=== PATIENT | female | born 1940 | race African-American/Black ===

== ENCOUNTER 2016-12-10 18:15 | Emergency (ER) | payer MEDICARE, MEDICAID ==
--- NOTE | 2016-12-10 18:49 | ER Document Report ---
ED Medical Screen (RME) - General Chief Complaint: Altered Mental Status Stated Complaint: ALTERED MENTAL STATUS Notes: Patient is brought in by her daughter because patient is supposedly not acting right. Daughter was at work today, but there is a nurse who stays with the patient all day. Daughter says that this evening, patient wasn't responding and not acting her usual self. They were in the car and she said she wanted a hamburger and she took about 2 bites of the hamburger and began slobbering and shaking. She won't respond to the daughter and her questions. Daughter says that she vomited twice yesterday. She wears a diaper chronically. Has not had a fever. Patient has a history of Parkinson's with tremor and also of dementia. TRAVEL OUTSIDE OF THE [place] IN LAST 30 DAYS: No - Related Data Allergies/Adverse Reactions: simvastatin [From Zocor] Adverse Reaction (Severe, Verified 12/10/16 18:20) RHABDOMYOLYSIS Past Medical History - Past Medical History Cardiac Medical History: Reports: Hx Hypercholesterolemia, Hx Hypertension Neurological Medical History: Reports: Hx Cerebrovascular Accident Renal/ Medical History: Denies: Hx Peritoneal Dialysis Psychiatric Medical History: Reports: Hx Dementia Past Surgical History: Reports: Hx Hysterectomy - Immunizations Hx Diphtheria, Pertussis, Tetanus Vaccination: Yes
[2016-12-10 19:20] LABS: ABSOLUTE BASOPHILS # (AUTO) 0.1 10^3/uL (0.0-0.2); ABSOLUTE LYMPHOCYTES (AUTO) 1.9 10^3/uL (0.5-4.7); ABSOLUTE MONOCYTES (AUTO) 0.5 10^3/uL (0.1-1.4); ABSOLUTE NEUT (AUTO) 2.8 10^3/uL (1.7-8.2); EOSINOPHILS % (AUTO) 0.7 % (0-6); HEMATOCRIT 36.4 % (36.0-47.0); HEMOGLOBIN 12.4 g/dL (12.0-15.5); HGB HCT DIFFERENCE 0.8; LYMPHOCYTES % (AUTO) 36.4 % (13-45); MEAN CORPUSCULAR HEMOGLOBIN 31.8 pg (27.0-33.4); MEAN CORPUSCULAR HGB CONC 33.9 g/dL (32.0-36.0); MEAN CORPUSCULAR VOLUME 94 fl (80-97); MONOCYTES % (AUTO) 8.7 % (3-13); RED BLOOD COUNT 3.89 10^6/uL (3.72-5.28); SEGMENTED NEUTROPHILS % (AUTO) 53.2 % (42-78); WHITE BLOOD COUNT 5.3 10^3/uL (4.0-10.5)
[2016-12-10 19:43] LABS: ALANINE AMINOTRANSFERASE 25 U/L (9-52); ALKALINE PHOSPHATASE 54 U/L (38-126); ANION GAP 14 (5-19); ASPARTATE AMINO TRANSFERASE 29 U/L (14-36); BILIRUBIN,DIRECT 0.2 mg/dL (0.0-0.4); BILIRUBIN,TOTAL 0.6 mg/dL (0.2-1.3); BLOOD UREA NITROGEN 18 mg/dL (7-20); CARBON DIOXIDE 26 mmol/L (22-30); CHLORIDE 103 mmol/L (98-107); CREATINE KINASE 151 U/L (30-135); CREATININE RESULT 1.03 mg/dL (0.52-1.25); GLUCOSE 105 mg/dL (75-110); POTASSIUM 3.8 mmol/L (3.6-5.0); SODIUM 143.1 mmol/L (137-145); TOTAL PROTEIN 7.2 g/dL (6.3-8.2)
--- NOTE | 2016-12-10 21:51 | ER Document Report ---
ED General - General Chief Complaint: Altered Mental Status Stated Complaint: ALTERED MENTAL STATUS Mode of Arrival: Wheelchair Information source: Relative Cannot obtain history due to: Dementia Notes: This is a 76-year-old female with a history of dementia and Parkinson's disease who is brought to the ER by her [id number] for concerns of altered mental status today. Daughter in law, who is herself a poor historian, states that patient had a 3 week history of constipation but finally this week was able to have a bowel movement. Today she states that patient may have had an episode of decreased responsiveness when she would not answer the question about what she would like to eat. She finally did request a hamburger to eat but only took about 2 bites and then spit it out. She was also noted to possibly be drooling at that time. Patient's family states that she often has episodes where she refuses to have a bowel movement and tries to also hold her urine. She is currently back to her baseline mental status. She does have advanced dementia but is alert to person and place. TRAVEL OUTSIDE OF THE [place] IN LAST 30 DAYS: No - Related Data Allergies/Adverse Reactions: simvastatin [From Zocor] Adverse Reaction (Severe, Verified 12/10/16 18:20) RHABDOMYOLYSIS Past Medical History - Social History Smoking Status: Unknown if Ever Smoked Chew tobacco use (# tins/day): No Frequency of alcohol use: None Drug Abuse: None Family History: Reviewed & Not Pertinent Patient has suicidal ideation: No Patient has homicidal ideation: No - Past Medical History Cardiac Medical History: Reports: Hx Hypercholesterolemia, Hx Hypertension Neurological Medical History: Reports: Hx Cerebrovascular Accident Renal/ Medical History: Denies: Hx Peritoneal Dialysis Psychiatric Medical History: Reports: Hx Dementia Past Surgical History: Reports: Hx Hysterectomy - Immunizations Hx Diphtheria, Pertussis, Tetanus Vaccination: Yes Hx Pneumococcal Vaccination: 05/21/15 Physical Exam - Vital signs Vitals: Resp 18 12/10/16 20:27 Course - Re-evaluation Re-evalutation: 12/10/16 23:51 Multiple re-evaluations during pt's ER stay. She remains alert, smiling, and in no distress, denying any pain or complaints. Both son and daughter in law state that this is her normal mental status. Son states that patient will from time to time have episodes she spits up food and is not as responsive. We discussed her reassuring lab evaluation as well as a reassuring head CT and chest x-ray. It does appear that she has a urinary tract infection and we will treat with antibiotics. This may be the reason for her change in mental status today. At this time I see no evidence of acute stroke or need for inpatient hospitalization. Family is comfortable with plan for outpatient follow-up. Strict return precautions discussed. - Vital Signs Vital signs: Temp Pulse Resp BP Pulse Ox 60 14 144/80 H 97 12/10/16 23:00 12/10/16 23:08 12/10/16 23:00 12/10/16 23:08 - Laboratory Result Diagrams: 12/10/16 18:55 12/10/16 18:55 Laboratory results interpreted by me: 12/10/16 12/10/16 18:55 23:16 Est GFR (Non-Af Amer) 52 L Creatine Kinase 151 H Ur Leukocyte Esterase TRACE H - Diagnostic Test Radiology reviewed: Reports reviewed - CXR: no acute process CT head: no acute process Discharge - Discharge Clinical Impression: Urinary tract infection Qualifiers: Urinary tract infection type: site unspecified Hematuria presence: without hematuria Qualified Code(s): N39.0 - Urinary tract infection, site not specified Dementia Qualifiers: Dementia type: unspecified type Dementia behavioral disturbance: without behavioral disturbance Qualified Code(s): F03.90 - Unspecified dementia without behavioral disturbance Condition: Stable Disposition: HOME, SELF-CARE Additional Instructions: URINARY TRACT INFECTION: Your evaluation indicates that you have a urinary tract infection. This is due to germs growing in the bladder. This is a common problem. This infection usually responds quickly to antibiotics. Your antibiotic should be taken exactly as prescribed. Drink plenty of fluids -- three to four quarts a day. Occasionally, a bladder anesthetic will be prescribed to help stop the feeling of urgency until the antibiotic has a chance to clear the infection. This may cause your urine to be dark orange. Certain urine infections require a culture. If the doctor obtained a culture, the results will be back in two days. You should call to see if a change in treatment is needed. A repeat urinalysis after you finish treatment is often recommended. The physician will let you know if further testing is required. Call the doctor if you develop fever, chills, flank pain, inability to urinate, or blood in the urine. ANTIBIOTIC THERAPY: You have been given an antibiotic prescription. It's important that you take all the medication, unless instructed otherwise by your physician. Failure to complete the entire course can result in relapse of your condition. Common side effects of antibiotics include nausea, intestinal cramping, or diarrhea. Women may develop vaginal yeast infections, and babies can get yeast (thrush) in the mouth following the use of antibiotics. Contact your physician if you develop significant side effects from this medication. Allergy to this antibiotic can result in hives, wheezing, faintness, or itching. If symptoms of allergy occur, stop the medication and call the doctor. NITROFURANTOIN (MACRODANTIN, MACROBID): You have received a prescription for nitrofurantoin (Macrodantin). This antibiotic is used for urinary tract infections. Women who are or nursing should notify the physician before taking this medicine. If you have ever had a problem caused by this medication in the past, be sure the physician is aware of it. Common side effects of this medicine include nausea, vomiting, or decreased appetite. Notify your physician if these side effects become severe. Immediately stop this medicine and call the physician if you develop cough , shortness of breath, chest pain, weakness, jaundice (yellow color of the skin and whites of the eyes), or a skin rash. Dementia The exam shows a decrease in mental ability called dementia. Signs of dementia include a gradual loss of memory and a decreased ability to reason and solve problems. Personality changes, hostility, lack of self-care, and loss of bladder or bowel control are later signs of dementia. In these later stages, patients may become confused, lost, fearful, or agitated, even in familiar places. Alzheimer's disease is the most common type of dementia. It has no known cause or specific treatment. Other causes include alcohol and drug abuse, medication effects (especially tranquilizers and sleeping pills), strokes, head injuries, and brain tumors. Sometimes severe depression in an elderly person is mistaken for dementia, and this can be treated if recognized. A complete medical evaluation and ongoing care with a doctor is important. Most people with dementia need help or supervision with daily living. Some may be able to live independently with occasional help; others require foster care or even alf placement. Alcohol, sedatives, and antihistamines may make the symptoms worse and should be avoided. Alzheimer's disease support groups are available in some communities and can be very valuable to the entire family. Prescription medication can ease the symptoms of Alzheimer's disease in some patients. Please arrange for medical follow-up. Return here if there is a sudden change in mental function, inability to move an arm or leg, inability to speak, fever, or any other significant change. FOLLOW-UP CARE: If you have been referred to a physician for follow-up care, call the physician s office for an appointment as you were instructed or within the next two days. If you experience worsening or a significant change in your symptoms, notify the physician immediately or return to the Emergency Department at any time for re-evaluation. As discussed follow-up with your primary care physician this week. Encourage fluid intake. Return to the ER for high fever, persistant vomiting, or any worsening symptoms or concerns. Prescriptions: Nitrofurantoin/Nitrofuran Mac [Macrobid 100 mg Capsule] 1 tab PO BID #20 capsule
[2016-12-10 23:26] LABS: APPEARANCE,URINE SLIGHTLY-CLOUDY; BILIRUBIN,URINE NEGATIVE (NEGATIVE); GLUCOSE, URINE NEGATIVE (NEGATIVE); KETONES,URINE NEGATIVE (NEGATIVE); LEUKOCYTE ESTERASE,URINE TRACE (NEGATIVE); NITRITE,URINE NEGATIVE (NEGATIVE); PROTEIN,URINE NEGATIVE (NEGATIVE); URINE SPECIFIC GRAVITY 1.015; UROBILINOGEN,URINE NEGATIVE mg/dL (<2.0)
[2016-12-10] MEDS ORDERED: CEFTRIAXONE 1 GM/D5W RTU 50 ML IV ONE (23:41)
[2016-12-10] MEDS ORDERED: CEFTRIAXONE INJ 500 MG VIAL IM ONE (23:47)
[2016-12-11 00:18] VITALS: BP 150/95
== END 2016-12-11 00:32 | disposition home or self-care (01) ==
LOC: ER 18:15
DX: N39.0 Urinary tract infection, site not specified (principal); G20 Parkinson's disease; F02.80 Dementia in other diseases classified elsewhere, unspecified severity, without behavioral disturbance, psychotic disturbance, mood disturbance, and anxiety; R41.82 Altered mental status, unspecified
CPT/HCPCS: 99285; 96372; 51701; 36415; 87086; 82553; 82962; 82550; 85025; 87088; 80053; 81001; 87186; 71020; 70450; J0696

== ENCOUNTER 2017-01-19 13:11 | Inpatient (IN) | payer MEDICARE, MEDICAID ==
[2017-01-19] MEDS ORDERED: NORMAL SALINE 1000 ML 1,000 ML IV ONE (14:23)
--- NOTE | 2017-01-19 14:28 | ER Document Report ---
ED Medical Screen (RME) - General Chief Complaint: Decreased Appetite Stated Complaint: CONFUSION,NOT EATING Time Seen by Provider: 01/19/17 14:21 Notes: Patient is a 76-year-old patient who has a history of dementia and does not communicate who is brought in by her son and care provider today because she has not been eating for the past week. In addition, she has been drinking less than she usually does. She has had symptoms such as these current ones when she has had a UTI in the past. Patient has been urinating very little this past week. Has not had any fevers. Not diabetic. TRAVEL OUTSIDE OF THE [place] IN LAST 30 DAYS: No - Related Data Allergies/Adverse Reactions: simvastatin [From Zocor] Adverse Reaction (Severe, Verified 01/19/17 13:26) RHABDOMYOLYSIS Past Medical History - Past Medical History Cardiac Medical History: Reports: Hx Hypercholesterolemia, Hx Hypertension Neurological Medical History: Reports: Hx Cerebrovascular Accident Renal/ Medical History: Denies: Hx Peritoneal Dialysis Psychiatric Medical History: Reports: Hx Dementia Past Surgical History: Reports: Hx Hysterectomy - Immunizations Hx Diphtheria, Pertussis, Tetanus Vaccination: Yes Physical Exam - Vital signs Vitals: Temp BP 97.8 F 108/66 01/19/17 13:26 01/19/17 13:26 Course - Vital Signs Vital signs: Temp Pulse Resp BP Pulse Ox 97.8 F 108/66 01/19/17 13:26 01/19/17 13:26
[2017-01-19 16:03] LABS: ABSOLUTE LYMPHOCYTES (AUTO) 2.8 10^3/uL (0.5-4.7); ABSOLUTE MONOCYTES (AUTO) 0.5 10^3/uL (0.1-1.4); ABSOLUTE NEUT (AUTO) 11.2 10^3/uL (1.7-8.2); BASOPHILS % (AUTO) 0.1 % (0-2); EOSINOPHILS % (AUTO) 0.1 % (0-6); HEMATOCRIT 39.4 % (36.0-47.0); HEMOGLOBIN 12.2 g/dL (12.0-15.5); HGB HCT DIFFERENCE -2.8; LYMPHOCYTES % (AUTO) 19.6 % (13-45); MEAN CORPUSCULAR HEMOGLOBIN 31.3 pg (27.0-33.4); MEAN CORPUSCULAR VOLUME 101 fl (80-97); MONOCYTES % (AUTO) 3.2 % (3-13); RED BLOOD COUNT 3.91 10^6/uL (3.72-5.28); RED CELL DISTRIBUTION WIDTH 14.8 % (11.5-14.0); WHITE BLOOD COUNT 14.5 10^3/uL (4.0-10.5)
[2017-01-19 16:25] LABS: ALANINE AMINOTRANSFERASE 35 U/L (9-52); ALBUMIN 4.1 g/dL (3.5-5.0); ALKALINE PHOSPHATASE 80 U/L (38-126); ANION GAP 19 (5-19); ASPARTATE AMINO TRANSFERASE 48 U/L (14-36); BILIRUBIN,DIRECT 0.4 mg/dL (0.0-0.4); BILIRUBIN,TOTAL 0.7 mg/dL (0.2-1.3); BLOOD UREA NITROGEN 76 mg/dL (7-20); CARBON DIOXIDE 23 mmol/L (22-30); CHLORIDE 136 mmol/L (98-107); CREATININE RESULT 2.63 mg/dL (0.52-1.25); GLUCOSE 80 mg/dL (75-110); POTASSIUM 4.6 mmol/L (3.6-5.0); TOTAL PROTEIN 8.4 g/dL (6.3-8.2)
[2017-01-19 16:36] LABS: SODIUM 178.2 mmol/L (137-145)
[2017-01-19] MEDS ORDERED: DEXTROSE 5%-WATER 500 ML IV PRN (16:48)
--- NOTE | 2017-01-19 17:21 | ER Document Report ---
ED General - General Chief Complaint: Decreased Appetite Stated Complaint: CONFUSION,NOT EATING Time Seen by Provider: 01/19/17 14:21 Mode of Arrival: Wheelchair Information source: Relative Notes: Pt is a 76 year old female who presents to the ER today with her son who brings her because she's not been eating or drinking over the past week. She has a history of multiple strokes and dementia, and usually talks a little per son. Over the past week, she's been talking less and been more "out of it." He also states she hasn't been urinating much during the day. He denies that she's had any diarrhea, complained of any pain, had any fever/chills, any new medications , hit her head, nausea or vomiting. TRAVEL OUTSIDE OF THE [place] IN LAST 30 DAYS: No - Related Data Allergies/Adverse Reactions: simvastatin [From Zocor] Adverse Reaction (Severe, Verified 01/19/17 13:26) RHABDOMYOLYSIS Home Medications: Current Home Medications Cyanocobalamin (Vitamin B-12) [Vitamin B-12 1000 mcg Tablet] 1,000 mcg PO DAILY 01/19/17 [History] Olmesartan/Amlodipin/Hcthiazid [Tribenzor 40-5-25 mg Tablet] 1 tab PO DAILY 09/06 [History] Pramipexole Di-HCl [Mirapex] 1.5 mg PO TID 01/19/17 [History] Past Medical History - General Information source: Patient - Social History Smoking Status: Never Smoker Frequency of alcohol use: None Drug Abuse: None Family History: Reviewed & Not Pertinent Patient has suicidal ideation: No Patient has homicidal ideation: No - Past Medical History Cardiac Medical History: Reports: Hx Hypercholesterolemia, Hx Hypertension Neurological Medical History: Reports: Hx Cerebrovascular Accident Renal/ Medical History: Denies: Hx Peritoneal Dialysis Psychiatric Medical History: Reports: Hx Dementia Past Surgical History: Reports: Hx Hysterectomy - Immunizations Hx Diphtheria, Pertussis, Tetanus Vaccination: Yes Hx Pneumococcal Vaccination: 05/21/15 Review of Systems - Review of Systems Constitutional: No symptoms reported EENT: No symptoms reported Cardiovascular: No symptoms reported Respiratory: No symptoms reported Gastrointestinal: See HPI Genitourinary: See HPI Female Genitourinary: No symptoms reported Musculoskeletal: No symptoms reported Skin: No symptoms reported Hematologic/Lymphatic: No symptoms reported Neurological/Psychological: See HPI Physical Exam - Vital signs Vitals: Temp BP 97.8 F 108/66 01/19/17 13:26 01/19/17 13:26 - Notes Notes: PHYSICAL EXAMINATION: GENERAL: elderly, demented, in no acute distress. HEAD: Atraumatic, normocephalic. NECK: Normal range of motion, supple without lymphadenopathy LUNGS: CTAB and equal. No wheezes rales or rhonchi. HEART: Regular rate and rhythm without murmurs ABDOMEN: Soft, no tenderness. No guarding, no rebound BACK: no vertebral tenderness, normal ROM GI/: no CVA tenderness EXTREMITIES: Normal range of motion, no pitting edema. No cyanosis. NEUROLOGICAL: nods head at certain questions appropriately, follows commands appropriately PSYCH: demented SKIN: Warm, Dry, normal turgor, no rashes or lesions noted Course - Re-evaluation Re-evalutation: 01/19/17 17:28 Patient has an elevated white blood cell count 14.5, elevated creatinine at 2.63 , BUN of 76, sodium of [address] at 136[address] Dr[address] Fields agrees to admit at this time for hypernatremia, altered mental status. 01/19/17 17:28 01/19/17 17:28 01/19/17 17:29 - Vital Signs Vital signs: Temp Pulse Resp BP Pulse Ox 97.8 F 87 16 108/66 99 01/19/17 13:27 01/19/17 13:27 01/19/17 13:27 01/19/17 13:27 01/19/17 13:27 - Laboratory Result Diagrams: 01/19/17 15:25 01/19/17 15:25 Laboratory results interpreted by me: 01/19/17 01/19/17 01/19/17 15:25 15:25 17:28 WBC 14.5 H MCV 101 H MCHC 31.0 L RDW 14.8 H Plt Count 105 L Absolute Neutrophils 11.2 H Sodium 178.2 H* Chloride 136 H BUN 76 H Creatinine 2.63 H Est GFR ( Amer) 21 L Est GFR (Non-Af Amer) 18 L AST 48 H Total Protein 8.4 H Urine Protein 30 H Ur Leukocyte Esterase MODERATE H Urine Ascorbic Acid 40 H Critical Care Note - Critical Care Note Total time excluding time spent on procedures (mins): 35 - 35 minutes spent in critical care time with patient, consulted with attending, speaking with family , placing orders and evaluating tests and labs. Discharge - Discharge Clinical Impression: Altered mental status, Hypernatremia, CITLALLI (acute kidney injury) Admitting Provider: Hospitalist Unit Admitted: Telemetry
[2017-01-19] MEDS ORDERED: 1/2 NORMAL SALINE 1,000 ML IV PRN (17:22)
[2017-01-19] MEDS ORDERED: MAGNESIUM HYDROXIDE SUSP 30 ML UDCUP PO PRN (17:27)
[2017-01-19] MEDS ORDERED: ONDANSETRON HCL INJ/PF 4 MG/2 ML SDV IV PRN (17:27)
[2017-01-19] MEDS ORDERED: ACETAMINOPHEN 325 MG TABLET PO PRN (17:27)
--- NOTE | 2017-01-19 17:39 | PDOC H&P ---
History of Present Illness Admission Date/PCP: 01/19/2017 isabel maldonado History of Present Illness: DIXIE MANJARREZ is a 76 year old female Past Medical History Cardiac Medical History: Reports: Hyperlipidema, Hypertension Psychiatric Medical History: Reports: Dementia Past Surgical History Past Surgical History: Reports: Hysterectomy Social History Information Source: Relative Smoking Status: Never Smoker Frequency of Alcohol Use: None Hx Recreational Drug Use: No Drugs: None Hx Prescription Drug Abuse: No - Advance Directive Resuscitation Status: Do Not Resuscitate Family History Family History: Reviewed & Not Pertinent Parental Family History Reviewed: Yes Children Family History Reviewed: Yes Sibling(s) Family History Reviewed.: Yes Medication/Allergy Home Medications: Ergocalciferol (Vitamin D2) [Drisdol 50,000 unit (1.25MG) Capsule] 50,000 unit PO SUNSHINE 08/10/15 Aspirin [[place] Aspirin] 81 mg PO DAILY 10/29/15 Cetirizine HCl [Zyrtec 10 mg Tablet] 10 mg PO DAILY 10/29/15 Cyanocobalamin (Vitamin B-12) [Vitamin B-12] 1,000 mcg PO DAILY 10/29/15 Gabapentin 100 mg PO TID 10/29/15 Olmesartan/Amlodipin/Hcthiazid [Tribenzor 40-5-25 mg Tablet] 1 tab PO DAILY 06/05 Pramipexole Di-HCl [Mirapex] 1.5 mg PO TID 10/29/15 Nitrofurantoin/Nitrofuran Mac [Macrobid 100 mg Capsule] 1 tab PO BID #20 capsule 12/10/16 Allergies/Adverse Reactions: simvastatin [From Zocor] Adverse Reaction (Severe, Verified 01/19/17 13:26) RHABDOMYOLYSIS Review of Systems ROS unobtainable: Due to mental status - demented Physical Exam Vital Signs: Temp Pulse Resp BP Pulse Ox 97.8 F 87 16 108/66 99 01/19/17 13:27 01/19/17 13:27 01/19/17 13:27 01/19/17 13:27 01/19/17 13:27 Intake & Output 01/18/17 01/19/17 01/20/17 06:59 06:59 06:59 Weight 56.2 kg General appearance: PRESENT: no acute distress, thin Head exam: PRESENT: atraumatic, normocephalic Eye exam: ABSENT: conjunctival injection, scleral icterus Mouth exam: PRESENT: moist Neck exam: ABSENT: lymphadenopathy, tracheal deviation Respiratory exam: PRESENT: chest wall tenderness. ABSENT: accessory muscle use Cardiovascular exam: PRESENT: RRR, systolic murmur - soft Pulses: PRESENT: normal radial pulses, normal dorsalis pedis pul GI/Abdominal exam: PRESENT: normal bowel sounds, soft. ABSENT: tenderness Extremities exam: PRESENT: calf tenderness. ABSENT: pedal edema Musculoskeletal exam: PRESENT: full ROM. ABSENT: tenderness Neurological exam: PRESENT: alert, awake, oriented to person, oriented to place. ABSENT: oriented to time, oriented to situation Psychiatric exam: PRESENT: appropriate affect, normal mood Skin exam: PRESENT: dry, warm Results Laboratory Results: 01/19/17 15:25 01/19/17 15:25 01/19/17 01/19/17 15:25 15:25 WBC 14.5 H RBC 3.91 Hgb 12.2 Hct 39.4 MCV 101 H MCH 31.3 MCHC 31.0 L RDW 14.8 H Plt Count 105 L Seg Neutrophils % 77.0 Lymphocytes % 19.6 Monocytes % 3.2 Eosinophils % 0.1 Basophils % 0.1 Absolute Neutrophils 11.2 H Absolute Lymphocytes 2.8 Absolute Monocytes 0.5 Absolute Eosinophils 0.0 Absolute Basophils 0.0 Sodium 178.2 H* Potassium 4.6 Chloride 136 H Carbon Dioxide 23 Anion Gap 19 BUN 76 H Creatinine 2.63 H Est GFR ( Amer) 21 L Est GFR (Non-Af Amer) 18 L Glucose 80 Calcium 10.0 Total Bilirubin 0.7 AST 48 H ALT 35 Alkaline Phosphatase 80 Total Protein 8.4 H Albumin 4.1 Assessment & Plan - Diagnosis (1) Hypernatremia Is this a current diagnosis for this admission?: YesPlan: severe and due to decreased oral intake, probably related to progressive dementia. she really doesn't appear but mildly hypovolemic clinically. BMP q4hrs for next 24 hrs. chg from D5W to 1/2 NS and adjust based on lab results (2) CITLALLI (acute kidney injury) Is this a current diagnosis for this admission?: YesPlan: likely prerenal due to decreased oral intake (3) Dementia Qualifiers: Dementia type: unspecified type Dementia behavioral disturbance: without behavioral disturbance Qualified Code(s): F03.90 - Unspecified dementia without behavioral disturbance Is this a current diagnosis for this admission?: Yes (4) Dysphagia Qualifiers: Dysphagia type: unspecified Qualified Code(s): R13.10 - Dysphagia, unspecified Is this a current diagnosis for this admission?: YesPlan: likely progressive dementia, have ST evaluate (5) Parkinson disease Is this a current diagnosis for this admission?: Yes - Time Time Spent: 50 to 70 Minutes Medications reviewed and adjusted accordingly: Yes Anticipated discharge: Home - lives with her son/POA who takes very good care of her - Inpatient Certification Based on my medical assessment, after consideration of the patient's comorbidities, presenting symptoms, or acuity I expect that the services needed warrant INPATIENT care.: Yes I certify that my determination is in accordance with my understanding of Medicare's requirements for reasonable and necessary INPATIENT services [42 CFR 412.3e].: Yes Medical Necessity: Significant Comorbidiites Make Outpatient Treatment Too Risky , Need Close Monitoring Due to Risk of Patient Decompensation, Need For IV Fluids, Risk of Complication if Not Cared For in Hospital
[2017-01-19 17:59] LABS: APPEARANCE,URINE SLIGHTLY-CLOUDY; BILIRUBIN,URINE NEGATIVE (NEGATIVE); GLUCOSE, URINE NEGATIVE (NEGATIVE); KETONES,URINE NEGATIVE (NEGATIVE); LEUKOCYTE ESTERASE,URINE MODERATE (NEGATIVE); NITRITE,URINE NEGATIVE (NEGATIVE); PROTEIN,URINE 30 mg/dL (NEGATIVE); URINE SPECIFIC GRAVITY 1.017; UROBILINOGEN,URINE NEGATIVE mg/dL (<2.0)
[2017-01-19] MEDS ORDERED: DEXTROSE 50%-WATER 25 GM/50 ML DISP.SYRIN IV ONE (18:54)
[2017-01-19] MEDS ORDERED: DEXTROSE 40% GEL 15 GM TUBE PO PRN ×2 (18:55)
[2017-01-19] MEDS ORDERED: GLUCAGON,HUMAN RECOMB 1 MG INJ IM PRN (18:55)
[2017-01-19] MEDS ORDERED: DEXTROSE 5%-1/2 NORMAL SALINE 1,000 ML IV PRN (18:55)
[2017-01-19] MEDS ORDERED: DEXTROSE 50%-WATER 25 GM/50 ML DISP.SYRIN IV PRN ×2 (18:55)
[2017-01-19 20:52] LABS: BLOOD UREA NITROGEN 72 mg/dL (7-20); CALCIUM 9.1 mg/dL (8.4-10.2); CARBON DIOXIDE 22 mmol/L (22-30); CREATININE RESULT 2.28 mg/dL (0.52-1.25); GLUCOSE 110 mg/dL (75-110); POTASSIUM 4.6 mmol/L (3.6-5.0)
[2017-01-19 21:25] LABS: CHLORIDE 134 mmol/L (98-107)
[2017-01-19 21:32] LABS: ANION GAP 20 (5-19); SODIUM 176.4 mmol/L (137-145)
[2017-01-19] MEDS: HEPARIN SOD (PORCINE) 5,000 UNIT/ML 1 ML SYRINGE SUBCUT SCH (22:12)
[2017-01-20 00:59] LABS: ANION GAP 12 (5-19); BLOOD UREA NITROGEN 66 mg/dL (7-20); CALCIUM 8.7 mg/dL (8.4-10.2); CARBON DIOXIDE 24 mmol/L (22-30); CHLORIDE 133 mmol/L (98-107); GLUCOSE 115 mg/dL (75-110); POTASSIUM 4.5 mmol/L (3.6-5.0); SODIUM 168.9 mmol/L (137-145)
[2017-01-20] MEDS ORDERED: DEXTROSE 5%-NORMAL SALINE 1,000 ML IV PRN ×2 (02:33→05:43)
[2017-01-20 04:53] LABS: ANION GAP 10 (5-19); BLOOD UREA NITROGEN 62 mg/dL (7-20); CALCIUM 8.6 mg/dL (8.4-10.2); CARBON DIOXIDE 25 mmol/L (22-30); CHLORIDE 132 mmol/L (98-107); CREATININE RESULT 2.03 mg/dL (0.52-1.25); GLUCOSE 98 mg/dL (75-110); POTASSIUM 3.9 mmol/L (3.6-5.0); SODIUM 167.4 mmol/L (137-145)
[2017-01-20] MEDS: HEPARIN SOD (PORCINE) 5,000 UNIT/ML 1 ML SYRINGE SUBCUT SCH ×3 (05:07→22:18)
[2017-01-20] MEDS ORDERED: (PENDING PHARMACY ID) (Pramipexole Di-Hcl [Mirapex] 1.5 MG) PO SCH (10:00)
--- NOTE | 2017-01-20 12:36 | PDOC PROGRESS REPORT ---
Subjective Progress Note for:: 01/20/17 Subjective:: reason for visit: f/u hypernatremia, dysphagia, dementia hospital course: 76yo female cared for by her son at home with advancing dementia presents to the ED with decreased appetite, increased lethargy and altered mental state. he reports she hasn't really eaten or drank anything for about a week, sometimes she will chew the food for a long time but never swallow it, other times she seems to do fine. he's noticed a drop off in her urine output to only once per day of concentrated, "strong smelling" urine and assumed she had another UTI b/c this is how she behaved in the past with UTIs. she is too demented to provide reliable ROS or PMH. eval in ED acute renal failure and hypernatremia, we were asked to admit for IVFs and further eval. He reports she is DNR and would not want aggressive or invasive interventions. Physical Exam Vital Signs: Temp Pulse Resp BP Pulse Ox 98.0 F 73 20 98/51 L 97 01/20/17 12:00 01/20/17 12:00 01/20/17 12:00 01/20/17 12:00 01/20/17 12:00 Intake & Output 01/19/17 01/20/17 01/21/17 06:59 06:59 06:59 Intake Total 102 Output Total 320 Balance -320 102 Weight 53.2 kg General appearance: PRESENT: no acute distress, thin, well-developed Head exam: PRESENT: atraumatic, normocephalic Teeth exam: PRESENT: poor dentation Neck exam: PRESENT: full ROM. ABSENT: JVD, thyromegaly, tracheal deviation Respiratory exam: PRESENT: clear to auscultation blake. ABSENT: accessory muscle use, unlabored Cardiovascular exam: PRESENT: RRR. ABSENT: systolic murmur Pulses: PRESENT: normal radial pulses, normal dorsalis pedis pul GI/Abdominal exam: PRESENT: normal bowel sounds, soft. ABSENT: tenderness Extremities exam: ABSENT: calf tenderness, pedal edema Neurological exam: PRESENT: alert, awake, oriented to person, oriented to place. ABSENT: oriented to time, oriented to situation Skin exam: PRESENT: dry, warm Results Laboratory Results: 01/20/17 04:01 01/19/17 01/19/17 01/20/17 17:28 20:21 00:26 Sodium 176.4 H* 168.9 H Potassium 4.6 4.5 Chloride 134 H 133 H Carbon Dioxide 22 24 Anion Gap 20 H 12 BUN 72 H 66 H Creatinine 2.28 H 2.00 H Est GFR ( Amer) 25 L 29 L Est GFR (Non-Af Amer) 21 L 24 L Glucose 110 115 H Calcium 9.1 8.7 Urine Color YELLOW Urine Appearance SLIGHTLY-CLOUDY Urine pH 5.0 Ur Specific [place] 1.017 Urine Protein 30 H Urine Glucose (UA) NEGATIVE Urine Ketones NEGATIVE Urine Blood NEGATIVE Urine Nitrite NEGATIVE Ur Leukocyte Esterase MODERATE H Urine WBC (Auto) 6 Urine RBC (Auto) 1 01/20/17 04:01 Sodium 167.4 H Potassium 3.9 Chloride 132 H Carbon Dioxide 25 Anion Gap 10 BUN 62 H Creatinine 2.03 H Est GFR ( Amer) 29 L Est GFR (Non-Af Amer) 24 L Glucose 98 Calcium 8.6 Urine Color Urine Appearance Urine pH Ur Specific [place] Urine Protein Urine Glucose (UA) Urine Ketones Urine Blood Urine Nitrite Ur Leukocyte Esterase Urine WBC (Auto) Urine RBC (Auto) Assessment & Plan - Diagnosis (1) Hypernatremia Is this a current diagnosis for this admission?: YesPlan: improved but not back to baseline, continue IVFs and f/u labs tonight and in the morning, she is difficult vascular/venous access so try to avoid too many venopunctures (2) CITLALLI (acute kidney injury) Is this a current diagnosis for this admission?: YesPlan: improved but not back to baseline. likely prerenal due to decreased oral intake ; continue IVFs (3) Dementia Qualifiers: Dementia type: unspecified type Dementia behavioral disturbance: without behavioral disturbance Qualified Code(s): F03.90 - Unspecified dementia without behavioral disturbance Is this a current diagnosis for this admission?: YesPlan: seems to be back to baseline (4) Dysphagia Qualifiers: Dysphagia type: unspecified Qualified Code(s): R13.10 - Dysphagia, unspecified Is this a current diagnosis for this admission?: YesPlan: improved, comlicated by hypernatremia; likely due to progressive dementia. ST evaluation shows no swallow failure, just delayed processing and is recommending amending her textures but no neurologic or functional abnl noted (5) Parkinson disease Is this a current diagnosis for this admission?: Yes - Time Time Spent with patient: 25-34 minutes
[2017-01-20] MEDS: PRAMIPEXOLE DI-HCL 0.5 MG TABLET PO SCH ×2 (15:02→22:22)
[2017-01-20 23:36] LABS: ANION GAP 12 (5-19); CALCIUM 8.5 mg/dL (8.4-10.2); CARBON DIOXIDE 21 mmol/L (22-30); CHLORIDE 131 mmol/L (98-107); CREATININE RESULT 1.48 mg/dL (0.52-1.25); GLUCOSE 95 mg/dL (75-110); POTASSIUM 4.2 mmol/L (3.6-5.0); SODIUM 164.4 mmol/L (137-145)
[2017-01-20 23:52] LABS: BLOOD UREA NITROGEN 36 mg/dL (7-20)
[2017-01-21] MEDS: PRAMIPEXOLE DI-HCL 0.5 MG TABLET PO SCH ×3 (05:03→22:22)
[2017-01-21] MEDS: HEPARIN SOD (PORCINE) 5,000 UNIT/ML 1 ML SYRINGE SUBCUT SCH ×3 (05:09→22:15)
[2017-01-21 05:36] LABS: ANION GAP 9 (5-19); BLOOD UREA NITROGEN 29 mg/dL (7-20); CARBON DIOXIDE 21 mmol/L (22-30); CHLORIDE 132 mmol/L (98-107); CREATININE RESULT 1.34 mg/dL (0.52-1.25); GLUCOSE 109 mg/dL (75-110); POTASSIUM 3.9 mmol/L (3.6-5.0); SODIUM 162.3 mmol/L (137-145)
--- NOTE | 2017-01-21 12:18 | PDOC PROGRESS REPORT ---
Subjective Progress Note for:: 01/21/17 Subjective:: reason for visit: f/u hypernatremia, dysphagia, dementia hospital course: 76yo female cared for by her son at home with advancing dementia presents to the ED with decreased appetite, increased lethargy and altered mental state. he reports she hasn't really eaten or drank anything for about a week, sometimes she will chew the food for a long time but never swallow it, other times she seems to do fine. he's noticed a drop off in her urine output to only once per day of concentrated, "strong smelling" urine and assumed she had another UTI b/c this is how she behaved in the past with UTIs. she is too demented to provide reliable ROS or PMH. eval in ED acute renal failure and hypernatremia, we were asked to admit for IVFs and further eval. He reports she is DNR and would not want aggressive or invasive interventions. ST evaluated and cleared for diet with consistency restriction in place, no s/s of aspiration noted. ROS: unobtainable due to dementia Physical Exam Vital Signs: Temp Pulse Resp BP Pulse Ox 97.3 F 66 16 128/67 H 98 01/21/17 11:16 01/21/17 11:16 01/21/17 11:16 01/21/17 11:16 01/21/17 11:16 Intake & Output 01/20/17 01/21/17 01/22/17 06:59 06:59 06:59 Intake Total 1525 481 Output Total 320 1400 100 Balance -320 125 381 Weight 53.2 kg 53.7 kg General appearance: PRESENT: no acute distress, thin Head exam: PRESENT: atraumatic, normocephalic Eye exam: ABSENT: conjunctival injection, scleral icterus Mouth exam: PRESENT: moist, neck supple Teeth exam: PRESENT: poor dentation Neck exam: PRESENT: full ROM. ABSENT: tracheal deviation Respiratory exam: PRESENT: clear to auscultation blake. ABSENT: accessory muscle use, unlabored Cardiovascular exam: PRESENT: RRR. ABSENT: systolic murmur Pulses: PRESENT: normal radial pulses, normal dorsalis pedis pul GI/Abdominal exam: PRESENT: normal bowel sounds, soft. ABSENT: tenderness Extremities exam: ABSENT: calf tenderness, pedal edema Musculoskeletal exam: PRESENT: full ROM Neurological exam: PRESENT: alert, awake, oriented to person, oriented to place. ABSENT: oriented to time, oriented to situation Psychiatric exam: PRESENT: appropriate affect, normal mood Skin exam: PRESENT: warm. ABSENT: dry Results Laboratory Results: 01/21/17 04:59 01/20/17 01/21/17 22:55 04:59 Sodium 164.4 H 162.3 H Potassium 4.2 3.9 Chloride 131 H 132 H Carbon Dioxide 21 L 21 L Anion Gap 12 9 BUN 36 H D 29 H Creatinine 1.48 H 1.34 H Est GFR ( Amer) 41 L 46 L Est GFR (Non-Af Amer) 34 L 38 L Glucose 95 109 Calcium 8.5 8.0 L Assessment & Plan - Diagnosis (1) Hypernatremia Is this a current diagnosis for this admission?: YesPlan: improved but not back to baseline, adjust IVFs and f/u labs in the morning, she is difficult vascular/venous access so try to avoid too many venopunctures (2) CITLALLI (acute kidney injury) Is this a current diagnosis for this admission?: YesPlan: improved but not back to baseline. likely prerenal due to decreased oral intake ; continue IVFs (3) Dementia Qualifiers: Dementia type: unspecified type Dementia behavioral disturbance: without behavioral disturbance Qualified Code(s): F03.90 - Unspecified dementia without behavioral disturbance Is this a current diagnosis for this admission?: Yes (4) Dysphagia Qualifiers: Dysphagia type: unspecified Qualified Code(s): R13.10 - Dysphagia, unspecified Is this a current diagnosis for this admission?: YesPlan: improved, complicated by hypernatremia; likely due to progressive dementia. ST evaluation shows no swallow failure, just delayed processing and is recommending amending her textures but no neurologic or functional abnl noted (5) Parkinson disease Is this a current diagnosis for this admission?: Yes - Time Time Spent with patient: 25-34 minutes Medications reviewed and adjusted accordingly: Yes Anticipated discharge: Home Within: within 24 hours - Plan Summary Plan Summary: discussed with her son at bedside, d/zbigniew fuentes today, ask PT to eval and probable d/c home Monday
[2017-01-21] MEDS: DEXTROSE 5%-1/2 NORMAL SALINE 1,000 ML IV PRN (12:44)
[2017-01-22] MEDS: DEXTROSE 5%-1/2 NORMAL SALINE 1,000 ML IV PRN (01:35)
[2017-01-22] MEDS: HEPARIN SOD (PORCINE) 5,000 UNIT/ML 1 ML SYRINGE SUBCUT SCH (05:07)
[2017-01-22] MEDS: PRAMIPEXOLE DI-HCL 0.5 MG TABLET PO SCH (06:23)
[2017-01-22 06:32] LABS: ANION GAP 8 (5-19); BLOOD UREA NITROGEN 20 mg/dL (7-20); CALCIUM 8.5 mg/dL (8.4-10.2); CARBON DIOXIDE 19 mmol/L (22-30); CHLORIDE 120 mmol/L (98-107); CREATININE RESULT 1.08 mg/dL (0.52-1.25); GLUCOSE 96 mg/dL (75-110); POTASSIUM 4.1 mmol/L (3.6-5.0)
[2017-01-22 10:43] VITALS: BP 138/76
--- NOTE | 2017-01-22 17:22 | PDOC DISCHARGE SUMMARY ---
General - Admit/Disc Date/PCP Admission Date/Primary Care Provider: 01/19/17 17:22 Discharge Date: 01/22/17 - Discharge Diagnosis (1) Hypernatremia Is this a current diagnosis for this admission?: YesSummary: due to hypovolemia, resolved with IVFs (2) CITLALLI (acute kidney injury) Is this a current diagnosis for this admission?: YesSummary: due to hypovolemia, resolved with IVFs (3) Dementia Is this a current diagnosis for this admission?: Yes (4) Dysphagia Is this a current diagnosis for this admission?: Yes (5) Parkinson disease Is this a current diagnosis for this admission?: Yes - Additional Information Resuscitation Status: Full Code Discharge Diet: As Tolerated Discharge Activity: Slowly Increase Activity, Supervised Activity Home Medications: Cyanocobalamin (Vitamin B-12) [Vitamin B-12 1000 mcg Tablet] 1,000 mcg PO DAILY 01/19/17 Pramipexole Di-HCl [Mirapex] 1.5 mg PO TID 01/19/17 Amlodipine Besylate 10 mg PO DAILY #30 tab 01/22/17 History of Present Illness Patient complains of: altered mental state, decreased oral intake History of Present Illness: presents from home where she is cared for by her son and his with decreased oral intake and increasing lethargy thinking "she probably has another UTI". Hospital Course Hospital Course: hospital course: 76yo female cared for by her son at home with advancing dementia presents to the ED with decreased appetite, increased lethargy and altered mental state. he reports she hasn't really eaten or drank anything for about a week, sometimes she will chew the food for a long time but never swallow it, other times she seems to do fine. he's noticed a drop off in her urine output to only once per day of concentrated, "strong smelling" urine and assumed she had another UTI b/c this is how she behaved in the past with UTIs. she is too demented to provide reliable ROS or PMH. eval in ED acute renal failure and hypernatremia, we were asked to admit for IVFs and further eval. He reports she is DNR and would not want aggressive or invasive interventions. ST evaluated and cleared for diet with consistency restriction in place, no s/s of aspiration noted. her condition rapidly improved with IVFs, renal function returned to normal, fuentes removed and she urinated on her own, appetite improved but I noticed she seems to do better for her son than her daughter in law who diminishes her dementia and readily chastises her for not eating and "playing sick". Nevertheless, she is up walking with PT, tolerating a diet and labs have normalized therefore she is stable for d/c home. f Physical Exam Vital Signs: Temp Pulse Resp BP Pulse Ox 98.0 F 59 L 20 138/76 H 99 01/22/17 10:41 01/22/17 10:41 01/22/17 10:41 01/22/17 10:41 01/22/17 10:41 Intake & Output 01/21/17 01/22/17 01/23/17 06:59 06:59 06:59 Intake Total 1525 3014 291 Output Total 1400 100 Balance 125 2914 291 Weight 53.7 kg 55.1 kg General appearance: PRESENT: no acute distress, thin Head exam: PRESENT: atraumatic, normocephalic Eye exam: ABSENT: conjunctival injection, scleral icterus Mouth exam: PRESENT: moist, neck supple Teeth exam: PRESENT: poor dentation Neck exam: PRESENT: full ROM. ABSENT: tracheal deviation Respiratory exam: PRESENT: clear to auscultation blake. ABSENT: accessory muscle use, unlabored Cardiovascular exam: PRESENT: RRR. ABSENT: systolic murmur Pulses: PRESENT: normal radial pulses, normal dorsalis pedis pul GI/Abdominal exam: PRESENT: normal bowel sounds, soft. ABSENT: tenderness Extremities exam: ABSENT: calf tenderness, pedal edema Musculoskeletal exam: PRESENT: full ROM Neurological exam: PRESENT: alert, awake, oriented to person, oriented to place. ABSENT: oriented to time, oriented to situation Psychiatric exam: PRESENT: appropriate affect, normal mood Skin exam: PRESENT: warm. ABSENT: dry Results Laboratory Results: 01/22/17 05:47 01/22/17 05:47 Sodium 147.0 H Potassium 4.1 Chloride 120 H Carbon Dioxide 19 L Anion Gap 8 BUN 20 Creatinine 1.08 Est GFR ( Amer) > 60 Est GFR (Non-Af Amer) 49 L Glucose 96 Calcium 8.5 Qualifiers PATEINT BEING DISCHARGED WITH ANY OF THE FOLLOWING DIAGNOSIS?: No VTE patient discharged on overlapping Therapy?: No Reason(s) for not prescribing Overlap Therapy:: Not indicated Plan Discharge Plan: f/u with her PCP in one week for routine hospital f/u and repeat labs; return to the ED for worsening of her condition. Time Spent: Greater than 30 Minutes
== END 2017-01-22 11:00 | disposition home or self-care (01) | DRG 683 ==
LOC: ER 13:11 → EH 17:22 → UNDOADMIN 17:44 → EH 17:44 → 4S 19:51
PROVIDERS: ADMIT Internal Medicine; ATTEND Internal Medicine
DX: N17.9 Acute kidney failure, unspecified (principal); E87.0 Hyperosmolality and hypernatremia; Z66 Do not resuscitate; E78.5 Hyperlipidemia, unspecified; I10 Essential (primary) hypertension; R63.0 Anorexia; R13.10 Dysphagia, unspecified; G20 Parkinson's disease; F02.80 Dementia in other diseases classified elsewhere, unspecified severity, without behavioral disturbance, psychotic disturbance, mood disturbance, and anxiety; Z86.73 Personal history of transient ischemic attack (TIA), and cerebral infarction without residual deficits
CPT/HCPCS: 36415; 80048; 80053; 81001; 82962; 85025; 87040; 87077; 87086; 96361; 96365; 99291; G8978-GP; G8979-GP; G8996-GN; G8997-GN; G8998-GN; J1644; J3490; J7030; J7060

== ENCOUNTER 2018-05-06 17:12 | Emergency (ER) | payer MEDICARE, MEDICAID ==
--- NOTE | 2018-05-06 18:52 | ER Document Report ---
ED Medical Screen (RME) - General Chief Complaint: Altered Mental Status Stated Complaint: ALTERED MENTAL STATUS Time Seen by Provider: 05/06/18 18:49 Mode of Arrival: Wheelchair Information source: Relative Notes: According to patient's son, patient has been weak and having bilateral lower extremity swelling for the past few days. She is unable to walk straight according to the son. Patient is nonverbal and will not answer to questions when asked. History is limited from the patient's son who accompanied the patient to the emergency room. I have greeted and performed a rapid initial assessment of this patient. A comprehensive ED assessment and evaluation of the patient, analysis of test results and completion of the medical decision making process will be conducted by additional ED providers. TRAVEL OUTSIDE OF THE [place] IN LAST 30 DAYS: No - Related Data Allergies/Adverse Reactions: simvastatin [From Zocor] Adverse Reaction (Severe, Verified 01/19/17 13:26) RHABDOMYOLYSIS Past Medical History - Social History Chew tobacco use (# tins/day): No Frequency of alcohol use: None Drug Abuse: None - Past Medical History Cardiac Medical History: Reports: Hx Hypercholesterolemia, Hx Hypertension Neurological Medical History: Reports: Hx Cerebrovascular Accident Renal/ Medical History: Denies: Hx Peritoneal Dialysis Psychiatric Medical History: Reports: Hx Dementia Past Surgical History: Reports: Hx Hysterectomy - Immunizations Hx Diphtheria, Pertussis, Tetanus Vaccination: Yes Physical Exam - Vital signs Vitals: Temp Pulse Resp BP Pulse Ox 98.3 F 66 20 151/77 H 97 05/06/18 17:54 05/06/18 17:54 05/06/18 17:54 05/06/18 17:54 05/06/18 17:54 Course - Vital Signs Vital signs: Temp Pulse Resp BP Pulse Ox 98.3 F 66 20 151/77 H 97 05/06/18 17:54 05/06/18 17:54 05/06/18 17:54 05/06/18 17:54 05/06/18 17:54 Doctor's Discharge - Discharge Referrals: MOOK WHITE MD [Primary Care Provider] - Follow up as needed
[2018-05-06 21:02] LABS: ABSOLUTE LYMPHOCYTES (AUTO) 1.5 10^3/uL (0.5-4.7); ABSOLUTE NEUT (AUTO) 5.6 10^3/uL (1.7-8.2); HEMATOCRIT 38.1 % (36.0-47.0); HEMOGLOBIN 12.7 g/dL (12.0-15.5); LYMPHOCYTES % (AUTO) 20.5 % (13-45); MEAN CORPUSCULAR HEMOGLOBIN 32.1 pg (27.0-33.4); MEAN CORPUSCULAR HGB CONC 33.4 g/dL (32.0-36.0); MEAN CORPUSCULAR VOLUME 96 fl (80-97); MONOCYTES % (AUTO) 4.2 % (3-13); PLATELET COUNT 213 10^3/uL (150-450); RED BLOOD COUNT 3.96 10^6/uL (3.72-5.28); RED CELL DISTRIBUTION WIDTH 13.2 % (11.5-14.0); SEGMENTED NEUTROPHILS % (AUTO) 74.9 % (42-78); TOTAL CELLS COUNTED % (AUTO) 100 %; WHITE BLOOD COUNT 7.5 10^3/uL (4.0-10.5)
[2018-05-06 21:03] LABS: ABSOLUTE MONOCYTES (AUTO) 0.3 10^3/uL (0.1-1.4); BASOPHILS % (AUTO) 0.2 % (0-2); EOSINOPHILS % (AUTO) 0.2 % (0-6)
[2018-05-06 21:06] LABS: PROTHROMBIN TIME 12.6 SEC (11.4-15.4)
[2018-05-06 21:07] LABS: PARTIAL THROMBOPLASTIN TIME 28.3 SEC (23.5-35.8)
[2018-05-06 21:47] LABS: ALANINE AMINOTRANSFERASE 33 U/L (9-52); ALBUMIN 4.3 g/dL (3.5-5.0); ALKALINE PHOSPHATASE 72 U/L (38-126); ANION GAP 9 (5-19); ASPARTATE AMINO TRANSFERASE 45 U/L (14-36); BILIRUBIN,DIRECT 0.5 mg/dL (0.0-0.4); BILIRUBIN,TOTAL 0.7 mg/dL (0.2-1.3); BLOOD UREA NITROGEN 40 mg/dL (7-20); CALCIUM 10.8 mg/dL (8.4-10.2); CARBON DIOXIDE 28 mmol/L (22-30); CHLORIDE 103 mmol/L (98-107); CREATINE KINASE 230 U/L (30-135); CREATINE KINASE MB 2.89 ng/mL (<4.55); GLUCOSE 129 mg/dL (75-110); NT PRO BNP 40 pg/mL (<450); POTASSIUM 3.7 mmol/L (3.6-5.0); SODIUM 140.1 mmol/L (137-145); TOTAL PROTEIN 8.2 g/dL (6.3-8.2)
[2018-05-06 21:48] LABS: TROPONIN I < 0.012 ng/mL
[2018-05-07 00:53] LABS: APPEARANCE,URINE CLOUDY; BILIRUBIN,URINE NEGATIVE (NEGATIVE); COLOR,URINE YELLOW; GLUCOSE, URINE NEGATIVE (NEGATIVE); KETONES,URINE 25 mg/dL (NEGATIVE); LEUKOCYTE ESTERASE,URINE LARGE (NEGATIVE); NITRITE,URINE POSITIVE (NEGATIVE); PROTEIN,URINE 30 mg/dL (NEGATIVE); URINE SPECIFIC GRAVITY 1.018; UROBILINOGEN,URINE NEGATIVE mg/dL (<2.0)
[2018-05-07] MEDS ORDERED: CEFTRIAXONE INJ 1000 MG VIAL IV ONE (01:39)
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
[2018-05-07 04:02] VITALS: BP 175/82
--- NOTE | 2018-05-07 05:20 | EKG REPORT ---
SEVERITY:- ABNORMAL ECG - SINUS RHYTHM FIRST DEGREE AV BLOCK LEFT VENTRICULAR HYPERTROPHY : Confirmed by: Gavi Prince 07-May-2018 05:19:27
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
== END 2018-05-07 04:01 | disposition home or self-care (01) ==
LOC: ER 17:12
DX: N10 Acute pyelonephritis (principal); R41.82 Altered mental status, unspecified; R53.1 Weakness; F03.90 Unspecified dementia, unspecified severity, without behavioral disturbance, psychotic disturbance, mood disturbance, and anxiety; Z88.8 Allergy status to other drugs, medicaments and biological substances
CPT/HCPCS: 93005; 99285; 51701; 96365; 36415; 82553; 82550; 85025; 85610; 85730; 80053; 81001; 84484; 83880; 71045; 70450; 93010; J0696

== ENCOUNTER 2018-06-14 20:39 | Inpatient (IN) | payer MEDICARE, MEDICAID ==
[2018-06-14] MEDS ORDERED: NORMAL SALINE 1000 ML 1,000 ML IV ONE (21:46)
--- NOTE | 2018-06-14 21:49 | ER Document Report ---
ED General - General Chief Complaint: General Weakness Stated Complaint: GENERALIZED WEAKNESS Time Seen by Provider: 06/14/18 21:44 TRAVEL OUTSIDE OF THE [place] IN LAST 30 DAYS: No - HPI Onset/Duration: Gradual, Constant Quality of pain: No pain Associated symptoms: None Exacerbated by: Denies Relieved by: Denies Similar symptoms previously: Yes - prior UTIs Notes: Patient is a 77-year-old female that presents to the emergency department for chief complaint of fatigue and decreased mental status. Patient lives at home with family who reports for the last 1-2 weeks she has had decreased mental status and energy. Family states she usually only answers questions in one-word responses and is minimally conversational but she will ambulate to get food and then back to bed. They state she has not been verbal with them for the entire day today and has had decreased verbal responses over the last few days. She has not wanted to get up. She has had decreased food and water intake. Family states she acted similarly with urinary tract infection 1 month ago. They deny any vomiting or diarrhea. HPI is limited because patient is currently nonverbal. Past Medical History: Retention, hyperlipidemia Past Surgical History: Hysterectomy Social History: Denies drugs alcohol and tobacco Family History: Reviewed and noncontributory for presenting illness Allergies: Reviewed, see documented allergy list. REVIEW OF SYSTEMS: CONSTITUTIONAL : No fever No chills No diaphoresis No recent illness Decreased appetite Malaise EENT: No vision changes No congestion No sore throat CARDIOVASCULAR: No chest pain No palpitations RESPIRATORY: No shortness of breath No cough No difficulty breathing GASTROINTESTINAL: No abdominal pain No nausea No vomiting No diarrhea GENITOURINARY: No dysuria No hematuria No difficulty urinating MUSCULOSKELETAL: No back pain No leg pain No arm pain SKIN: No rashes No lesions LYMPHATIC: No swollen, enlarged glands. NEUROLOGICAL: No lightheadedness No headache No weakness No paresthesias PSYCHIATRIC: No anxiety No depression PHYSICAL EXAMINATION: Vital signs reviewed, nursing noted reviewed. GENERAL: Well-appearing, well-nourished and in no acute distress. HEAD: Atraumatic, normocephalic. EYES: Eyes appear normal, extraocular movements intact, sclera anicteric, conjunctiva are normal. ENT: nares patent, oropharynx clear without exudates. dry mucous membranes. NECK: Normal range of motion, supple without lymphadenopathy LUNGS: Breath sounds clear to auscultation bilaterally and equal. No wheezes rales or rhonchi. HEART: Regular rate and rhythm without murmurs ABDOMEN: Soft, nontender, normoactive bowel sounds. No rebound, guarding, or rigidity. No masses appreciated. EXTREMITIES: Nontender, good range of motion, no pitting or edema. NEUROLOGICAL: No focal neurological deficits. Moves all extremities spontaneously Motor and sensory grossly intact on exam. Nonverbal PSYCH: Normal mood, normal affect. SKIN: Warm, Dry, normal turgor, no rashes or lesions noted on exposed skin - Related Data Allergies/Adverse Reactions: simvastatin [From Zocor] Adverse Reaction (Severe, Verified 01/19/17 13:26) RHABDOMYOLYSIS Past Medical History - Social History Smoking Status: Never Smoker Family History: Reviewed & Not Pertinent Patient has suicidal ideation: No Patient has homicidal ideation: No - Past Medical History Cardiac Medical History: Reports: Hx Hypercholesterolemia, Hx Hypertension Neurological Medical History: Reports: Hx Cerebrovascular Accident Renal/ Medical History: Denies: Hx Peritoneal Dialysis Psychiatric Medical History: Reports: Hx Dementia Past Surgical History: Reports: Hx Hysterectomy - Immunizations Hx Diphtheria, Pertussis, Tetanus Vaccination: Yes Hx Pneumococcal Vaccination: 05/21/15 Review of Systems - Review of Systems Notes: dictated Physical Exam - Vital signs Vitals: Temp Pulse Resp BP Pulse Ox 97.7 F 118 H 16 108/65 90 L 06/14/18 20:49 06/14/18 20:49 06/14/18 20:49 06/14/18 20:49 06/14/18 20:49 - Notes Notes: Dictated Course - Re-evaluation Re-evalutation: 06/14/18 21:49 Vitals reviewed. Nursing notes reviewed. Patient is nonverbal but is awake and shaking her head yes and no to answer questions. She was started on IV hydration 06/14/18 23:02 Patient's lab work shows acute renal failure with a BUN of 101 and creatinine greater than 3. She has a stable potassium. Chest x-ray shows no pneumonia or fluid overload. Urinalysis negative for infection. She has a normal lactic acid and no other signs of sepsis or infection. Her WBC count is normal. Patient's acute kidney failure likely related to dehydration from poor intake over the last 1-2 weeks. I discussed her care with Dr. Archuleta who will admit her to the hospital for hydration and further monitoring of her acute renal failure and failure to thrive. patient and family are in agreement with this plan. She is stable at time of admission. Chest X-Ray 06/14/18 21:45 IMPRESSION: No evidence of acute cardiopulmonary disease. NUMBER OF VIEWS: TECHNIQUE: LIMITATIONS: None. FINDINGS: IMPRESSION: 2010 [facility] [employer] [facility]- All Rights Reserved Laboratory 06/14/18 06/14/18 06/14/18 21:57 22:08 22:08 WBC 9.4 RBC 3.94 Hgb 12.7 Hct 37.7 MCV 96 MCH 32.4 MCHC 33.8 RDW 13.0 Plt Count 280 Seg Neutrophils % 70.4 Lymphocytes % 22.5 Monocytes % 6.0 Eosinophils % 0.7 Basophils % 0.4 Absolute Neutrophils 6.6 Absolute Lymphocytes 2.1 Absolute Monocytes 0.6 Absolute Eosinophils 0.1 Absolute Basophils 0.0 Sodium 148.1 H Potassium 3.8 Chloride 103 Carbon Dioxide 28 Anion Gap 17 BUN 101 H Creatinine 3.37 H Est GFR ( Amer) 16 L Est GFR (Non-Af Amer) 13 L Glucose 102 POC Glucose 64 L Lactic Acid Calcium 10.7 H Total Bilirubin 1.0 Direct Bilirubin 0.3 Neonat Total Bilirubin Not Reportable Neonat Direct Bilirubin Not Reportable Neonat Indirect Bili Not Reportable AST 174 H ALT 59 H Alkaline Phosphatase 86 Troponin I Total Protein 8.0 Albumin 4.1 Urine Color Urine Appearance Urine pH Ur Specific Odd Urine Protein Urine Glucose (UA) Urine Ketones Urine Blood Urine Nitrite Urine Bilirubin Urine Urobilinogen Ur Leukocyte Esterase Urine WBC (Auto) U Hyaline Cast (Auto) Urine Bacteria (Auto) Squamous Epi Cells Auto Urine Mucus (Auto) Urine Ascorbic Acid 06/14/18 06/14/18 06/14/18 22:08 22:08 22:20 WBC RBC Hgb Hct MCV MCH MCHC RDW Plt Count Seg Neutrophils % Lymphocytes % Monocytes % Eosinophils % Basophils % Absolute Neutrophils Absolute Lymphocytes Absolute Monocytes Absolute Eosinophils Absolute Basophils Sodium Potassium Chloride Carbon Dioxide Anion Gap BUN Creatinine Est GFR ( Amer) Est GFR (Non-Af Amer) Glucose POC Glucose Lactic Acid 1.5 Calcium Total Bilirubin Direct Bilirubin Neonat Total Bilirubin Neonat Direct Bilirubin Neonat Indirect Bili AST ALT Alkaline Phosphatase Troponin I 0.027 Total Protein Albumin Urine Color YELLOW Urine Appearance SLIGHTLY-CLOUDY Urine pH 5.0 Ur Specific Odd 1.014 Urine Protein NEGATIVE Urine Glucose (UA) NEGATIVE Urine Ketones NEGATIVE Urine Blood MODERATE H Urine Nitrite NEGATIVE Urine Bilirubin NEGATIVE Urine Urobilinogen 2.0 H Ur Leukocyte Esterase NEGATIVE Urine WBC (Auto) 1 U Hyaline Cast (Auto) 15 Urine Bacteria (Auto) 1+ Squamous Epi Cells Auto <1 Urine Mucus (Auto) RARE Urine Ascorbic Acid NEGATIVE - Vital Signs Vital signs: Temp Pulse Resp BP Pulse Ox 97.7 F 118 H 21 H 108/65 98 06/14/18 20:49 06/14/18 20:49 06/14/18 22:19 06/14/18 20:49 06/14/18 22:19 - Laboratory Result Diagrams: 06/14/18 22:08 06/14/18 22:08 Laboratory results interpreted by me: 06/14/18 06/14/18 06/14/18 21:57 22:08 22:20 Sodium 148.1 H BUN 101 H Creatinine 3.37 H Est GFR ( Amer) 16 L Est GFR (Non-Af Amer) 13 L POC Glucose 64 L Calcium 10.7 H AST 174 H ALT 59 H Urine Blood MODERATE H Urine Urobilinogen 2.0 H - EKG Interpretation by Me Additional EKG results interpreted by me: 06/14/18 22:41 Interpreted by myself [id number]: Normal sinus rhythm, rate 70, normal axis, no ectopy, normal NH interval, no ST elevation, no change from 05/07/18 Discharge - Discharge Clinical Impression: Hypoglycemia, Dehydration, severe Change in mental status Qualifiers: Altered mental status type: somnolence Qualified Code(s): R40.0 - Somnolence Hematuria Qualifiers: Hematuria type: asymptomatic microscopic Qualified Code(s): R31.21 - Asymptomatic microscopic hematuria Acute renal failure (ARF) Qualifiers: Acute renal failure type: unspecified Qualified Code(s): N17.9 - Acute kidney failure, unspecified Condition: Stable Disposition: ADMITTED INPATIENT Admitting Provider: Kathe Unit Admitted: Telemetry
--- NOTE | 2018-06-14 22:02 | EKG REPORT ---
SEVERITY:- ABNORMAL ECG - SINUS RHYTHM LEFT VENTRICULAR HYPERTROPHY : Confirmed by: Gavi Prince 14-Jun-2018 22:01:29
[2018-06-14 22:25] LABS: ABSOLUTE MONOCYTES (AUTO) 0.6 10^3/uL (0.1-1.4); HEMOGLOBIN 12.7 g/dL (12.0-15.5); MEAN CORPUSCULAR HGB CONC 33.8 g/dL (32.0-36.0); TOTAL CELLS COUNTED % (AUTO) 100 %; WHITE BLOOD COUNT 9.4 10^3/uL (4.0-10.5)
[2018-06-14 22:31] LABS: ABSOLUTE EOSINOPHILS # (AUTO) 0.1 10^3/uL (0.0-0.6); ABSOLUTE LYMPHOCYTES (AUTO) 2.1 10^3/uL (0.5-4.7); ABSOLUTE NEUT (AUTO) 6.6 10^3/uL (1.7-8.2); BASOPHILS % (AUTO) 0.4 % (0-2); EOSINOPHILS % (AUTO) 0.7 % (0-6); HEMATOCRIT 37.7 % (36.0-47.0); LYMPHOCYTES % (AUTO) 22.5 % (13-45); MEAN CORPUSCULAR HEMOGLOBIN 32.4 pg (27.0-33.4); MEAN CORPUSCULAR VOLUME 96 fl (80-97); PLATELET COUNT 280 10^3/uL (150-450); RED BLOOD COUNT 3.94 10^6/uL (3.72-5.28); SEGMENTED NEUTROPHILS % (AUTO) 70.4 % (42-78)
[2018-06-14 22:37] LABS: APPEARANCE,URINE SLIGHTLY-CLOUDY; BILIRUBIN,URINE NEGATIVE (NEGATIVE); COLOR,URINE YELLOW; GLUCOSE, URINE NEGATIVE (NEGATIVE); KETONES,URINE NEGATIVE (NEGATIVE); LEUKOCYTE ESTERASE,URINE NEGATIVE (NEGATIVE); NITRITE,URINE NEGATIVE (NEGATIVE); PROTEIN,URINE NEGATIVE (NEGATIVE); URINE SPECIFIC GRAVITY 1.014
[2018-06-14] MEDS ORDERED: DEXTROSE 50%-WATER 25 GM/50 ML DISP.SYRIN IV ONE (22:45)
[2018-06-14 22:47] LABS: ALANINE AMINOTRANSFERASE 59 U/L (9-52); ALBUMIN 4.1 g/dL (3.5-5.0); ALKALINE PHOSPHATASE 86 U/L (38-126); ANION GAP 17 (5-19); ASPARTATE AMINO TRANSFERASE 174 U/L (14-36); BILIRUBIN,DIRECT 0.3 mg/dL (0.0-0.4); BLOOD UREA NITROGEN 101 mg/dL (7-20); CALCIUM 10.7 mg/dL (8.4-10.2); CARBON DIOXIDE 28 mmol/L (22-30); CHLORIDE 103 mmol/L (98-107); GLUCOSE 102 mg/dL (75-110); POTASSIUM 3.8 mmol/L (3.6-5.0); SODIUM 148.1 mmol/L (137-145)
[2018-06-14] MEDS ORDERED: NORMAL SALINE 1000 ML 1,000 ML IV PRN (22:59)
--- NOTE | 2018-06-14 23:00 | RADIOLOGY REPORT (SQ) ---
EXAM DESCRIPTION: XR CHEST 1 VIEW COMPLETED DATE/TME: 06/14/2018 21:45 CLINICAL HISTORY: 77 years, Female, cough COMPARISON: EXAM DESCRIPTION: CLINICAL HISTORY: cough COMPARISON: None. FINDINGS: Single view of the chest is submitted. Cardiac silhouette is normal. No focal parenchymal or pleural disease. No acute bony abnormality. There is no significant pulmonary vascular engorgement. IMPRESSION: No evidence of acute cardiopulmonary disease. NUMBER OF VIEWS: TECHNIQUE: LIMITATIONS: None. FINDINGS: IMPRESSION: 2010 [facility] [employer]- All Rights Reserved
[2018-06-15] MEDS ORDERED: NORMAL SALINE 1000 ML 1,000 ML IV PRN (03:19)
[2018-06-15] MEDS ORDERED: GLUCAGON,HUMAN RECOMB 1 MG INJ ONE (09:02)
[2018-06-15] MEDS ORDERED: DEXTROSE 40% GEL 15 GM TUBE ONE (09:44)
[2018-06-15] MEDS ORDERED: DEXTROSE 50%-WATER 25 GM/50 ML DISP.SYRIN IV ONE (09:49)
--- NOTE | 2018-06-15 10:22 | EKG REPORT ---
SEVERITY:- ABNORMAL ECG - SINUS RHYTHM LEFT VENTRICULAR HYPERTROPHY : Confirmed by: Gavi Prince 15-Jun-2018 10:21:34
[2018-06-15] MEDS ORDERED: DEXTROSE 50%-WATER SYRINGE 25 GM/50 ML DOSE IV PRN (10:44)
[2018-06-15] MEDS ORDERED: DEXTROSE 40% GEL 15 GM TUBE X 2 PO PRN (10:44)
[2018-06-15] MEDS ORDERED: DEXTROSE 40% GEL 15 GM TUBE PO PRN (10:44)
[2018-06-15] MEDS ORDERED: GLUCAGON,HUMAN RECOMB 1 MG INJ IM PRN (10:44)
[2018-06-15] MEDS ORDERED: DEXTROSE 50%-WATER SYRINGE 12.5 GM/25 ML DOSE IV PRN (10:44)
[2018-06-15] MEDS ORDERED: LIDOCAINE 2% INJ-PF (100 MG/5 ML) SYRINGE ONE (14:01)
[2018-06-15] MEDS ORDERED: LIDOCAINE 1% INJ-PF (10 MG/ML) 30 ML SDV INJ PRN (14:15)
--- NOTE | 2018-06-15 15:53 | PDOC H&P ---
History of Present Illness Admission Date/PCP: 06/14/18 23:38 MOOK WHITE Patient complains of: Generalized weakness History of Present Illness: DIXIE MANJARREZ is a 77 year old female patient known to my practice who was brought to the ED by family due to compliant of worsening generalized weakness and not been her usual self. Patient had episode of UTI about one month ago. Son reported that thereafter she has not been her usual self with decrease apatite and po intake. She has become progressively weaker thereafter. She does not swallow her food but chew and retain in her mouth. There was no reported or expressed pain or difficulty with swallowing. No reported vomiting, constipation or diarrhea. No fever or chills. Her usual self have been minimal verbal interaction but this have been non existence in the last couple of days. Her ED initial evaluation was significant for severe dehydration. Her morbidities include dementia, hypertension, prior CVA with late effects, and visual impairment Past Medical History Cardiac Medical History: Reports: Hyperlipidema, Hypertension Psychiatric Medical History: Reports: Dementia Past Surgical History Past Surgical History: Reports: Hysterectomy Social History Smoking Status: Never Smoker Frequency of Alcohol Use: None Hx Recreational Drug Use: No Drugs: None Hx Prescription Drug Abuse: No - Advance Directive Resuscitation Status: Do Not Resuscitate Family History Family History: Reviewed & Not Pertinent Parental Family History Reviewed: Yes Children Family History Reviewed: Yes Sibling(s) Family History Reviewed.: Yes Medication/Allergy Home Medications: Latanoprost [Xalatan] 2.5 ml OD QHS 06/15/18 Olmesartan/Amlodipin/Hcthiazid [Ljywqgk-[id number]-Ubpx 40-5-25 mg] 1 each PO DAILY 06/15/18 Pramipexole Di-HCl [Pramipexole ER] 1.5 mg PO Q8 06/15/18 Allergies/Adverse Reactions: simvastatin [From Zocor] Adverse Reaction (Severe, Verified 01/19/17 13:26) RHABDOMYOLYSIS Review of Systems ROS unobtainable: Due to mental status Physical Exam Vital Signs: Temp Pulse Resp BP Pulse Ox 97.7 F 55 L 16 121/69 96 06/15/18 08:04 06/15/18 14:00 06/15/18 08:04 06/15/18 08:04 06/15/18 08:04 Intake & Output 06/14/18 06/15/18 06/16/18 06:59 06:59 06:59 Intake Total 1075 Output Total 0 Balance 1075 Weight 57.2 kg General appearance: PRESENT: no acute distress Head exam: PRESENT: atraumatic, normocephalic Eye exam: PRESENT: conjunctiva pink, other - corneal opacification in left eye. ABSENT: scleral icterus Ear exam: PRESENT: normal external ear exam Mouth exam: PRESENT: dry mucosa Teeth exam: PRESENT: poor dentation Neck exam: PRESENT: full ROM. ABSENT: carotid bruit, JVD, lymphadenopathy, thyromegaly Respiratory exam: PRESENT: clear to auscultation blake, decreased breath sounds - at lung bases Cardiovascular exam: PRESENT: RRR. ABSENT: diastolic murmur, rubs, systolic murmur Pulses: PRESENT: +1 pedal pulses bilateral Vascular exam: PRESENT: normal capillary refill. ABSENT: pallor GI/Abdominal exam: PRESENT: normal bowel sounds, soft. ABSENT: distended, guarding, mass, organolmegaly, rebound, tenderness Rectal exam: PRESENT: deferred Extremities exam: ABSENT: pedal edema Musculoskeletal exam: PRESENT: deformity - related to multiple joints involvement with arthritis Neurological exam: PRESENT: altered - not verbally responsive. All information form son at bedside during my evaluation Psychiatric exam: PRESENT: appropriate affect, normal mood. ABSENT: homicidal ideation, suicidal ideation Skin exam: PRESENT: dry, warm Results Laboratory Results: I reviewed her lab results on [employer] and form significant part of my medical decision making. Impressions: Chest X-Ray 06/14/18 21:45 IMPRESSION: No evidence of acute cardiopulmonary disease. NUMBER OF VIEWS: TECHNIQUE: LIMITATIONS: None. FINDINGS: IMPRESSION: 2010 [facility] [place] [employer] [facility]- All Rights Reserved Assessment & Plan - Diagnosis (1) Altered mental status Qualifiers: Altered mental status type: somnolence Qualified Code(s): R40.0 - Somnolence Is this a current diagnosis for this admission?: Yes Plan: See admitting attending physician orders. (2) Acute renal failure (ARF) Qualifiers: Acute renal failure type: unspecified Qualified Code(s): N17.9 - Acute kidney failure, unspecified Is this a current diagnosis for this admission?: Yes Plan: See admitting attending physician orders. (3) Dehydration, severe Is this a current diagnosis for this admission?: Yes Plan: See admitting attending physician orders. (4) HTN (hypertension) Qualifiers: Hypertension type: essential hypertension Qualified Code(s): I10 - Essential (primary) hypertension Is this a current diagnosis for this admission?: Yes Plan: See admitting attending physician orders. 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 (6) Hemiparesis affecting right side as late effect of cerebrovascular accident Is this a current diagnosis for this admission?: Yes Plan: See admitting attending physician orders. - Time Time Spent: 50 to 70 Minutes Medications reviewed and adjusted accordingly: Yes Anticipated discharge: Home with Homehealth, SNF Within: Other - Inpatient Certification Based on my medical assessment, after consideration of the patient's comorbidities, presenting symptoms, or acuity I expect that the services needed warrant INPATIENT care.: Yes I certify that my determination is in accordance with my understanding of Medicare's requirements for reasonable and necessary INPATIENT services [42 CFR 412.3e].: Yes Medical Necessity: Need Close Monitoring Due to Risk of Patient Decompensation, Need For IV Fluids, Risk of Complication if Not Cared For in Hospital Post Hospital Care: D/C [employer] Documentation - Plan Summary Plan Summary: See admitting attending physician orders.
[2018-06-15] MEDS ORDERED: DEXTROSE 10%-WATER 1,000 ML IV PRN (18:42)
--- NOTE | 2018-06-15 19:00 | Operative Report ---
Operative Report DATE OF SURGERY: 06/15/18 PREOPERATIVE DIAGNOSIS: Sepsis POSTOPERATIVE DIAGNOSIS: Sepsis OPERATION: Ultrasound directed insertion of triple-lumen central venous access catheter left internal jugular vein SURGEON: ELIZABET CERVANTES ANESTHESIA: Local TISSUE REMOVED OR ALTERED: None COMPLICATIONS: None ESTIMATED BLOOD LOSS: None INTRAOPERATIVE FINDINGS: See below PROCEDURE: Informed consent was obtained. The patient was placed in Trendelenburg the left neck and chest wall were exposed, and prepped and draped in a sterile fashion. Surgical plan and surgical timeout discussed. The left neck was anesthetized with 1% lidocaine without epinephrine. Using the variable frequency linear transducer, real time, a 18-gauge needle and wire were threaded into the left internal jugular vein. The tract was dilated up, the dilator removed, and the triple-lumen central venous access catheter was threaded into the right internal jugular vein uneventfully to the hub. There was excellent aspiration and flush of saline through all 3 lumens. The catheter was affixed to the skin with a Biopatch and 2-0 silk suture; sterile dressing applied. The patient tolerated the procedure well. There were no complications. The nursing staff may use the catheter
[2018-06-16 08:45] LABS: ABSOLUTE LYMPHOCYTES (AUTO) 1.5 10^3/uL (0.5-4.7); ABSOLUTE MONOCYTES (AUTO) 0.4 10^3/uL (0.1-1.4); ABSOLUTE NEUT (AUTO) 5.2 10^3/uL (1.7-8.2); BASOPHILS % (AUTO) 0.5 % (0-2); EOSINOPHILS % (AUTO) 0.5 % (0-6); HEMATOCRIT 31.3 % (36.0-47.0); LYMPHOCYTES % (AUTO) 21.2 % (13-45); MEAN CORPUSCULAR HEMOGLOBIN 32.1 pg (27.0-33.4); MEAN CORPUSCULAR HGB CONC 33.9 g/dL (32.0-36.0); MEAN CORPUSCULAR VOLUME 94 fl (80-97); MONOCYTES % (AUTO) 5.4 % (3-13); PLATELET COUNT 221 10^3/uL (150-450); RED BLOOD COUNT 3.31 10^6/uL (3.72-5.28); RED CELL DISTRIBUTION WIDTH 12.7 % (11.5-14.0); SEGMENTED NEUTROPHILS % (AUTO) 72.4 % (42-78); TOTAL CELLS COUNTED % (AUTO) 100 %; WHITE BLOOD COUNT 7.2 10^3/uL (4.0-10.5)
[2018-06-16 08:54] LABS: HEMOGLOBIN 10.6 g/dL (12.0-15.5)
[2018-06-16 08:59] LABS: ANION GAP 11 (5-19); BLOOD UREA NITROGEN 67 mg/dL (7-20); CALCIUM 9.6 mg/dL (8.4-10.2); CARBON DIOXIDE 27 mmol/L (22-30); CHLORIDE 108 mmol/L (98-107); GLUCOSE 136 mg/dL (75-110); POTASSIUM 3.4 mmol/L (3.6-5.0); SODIUM 145.6 mmol/L (137-145)
[2018-06-16] MEDS: POTASSIUM CHLORIDE IV PRN ×2 (15:05)
[2018-06-16] MEDS: DEXTROSE 10% IV PRN ×2 (15:05)
[2018-06-16] MEDS: WATER IV PRN ×2 (15:05)
--- NOTE | 2018-06-16 17:41 | PDOC PROGRESS REPORT ---
Subjective Progress Note for:: 06/16/18 Subjective:: Patient seen by the bedside, she has generalized debility, not verbal, persistent hypoglycemia Reason For Visit: HYPOGLYCEMIA,AMS,ARF Physical Exam Vital Signs: Temp Pulse Resp BP Pulse Ox 97.7 F 68 14 114/67 99 06/16/18 16:00 06/16/18 16:00 06/16/18 16:00 06/16/18 16:00 06/16/18 16:00 Intake & Output 06/15/18 06/16/18 06/17/18 06:59 06:59 06:59 Intake Total 1075 1354 Output Total 0 1250 600 Balance 1075 104 -600 Weight 57.2 kg 56.3 kg General appearance: PRESENT: no acute distress Eye exam: PRESENT: PERRLA Respiratory exam: PRESENT: clear to auscultation blake Cardiovascular exam: PRESENT: +S2 Murmur grade: 3 Neurological exam: PRESENT: alert Results Laboratory Results: 06/16/18 08:00 06/16/18 08:00 06/16/18 06/16/18 08:00 08:00 WBC 7.2 RBC 3.31 L Hgb 10.6 L D Hct 31.3 L MCV 94 MCH 32.1 MCHC 33.9 RDW 12.7 Plt Count 221 Seg Neutrophils % 72.4 Lymphocytes % 21.2 Monocytes % 5.4 Eosinophils % 0.5 Basophils % 0.5 Absolute Neutrophils 5.2 Absolute Lymphocytes 1.5 Absolute Monocytes 0.4 Absolute Eosinophils 0.0 Absolute Basophils 0.0 Sodium 145.6 H Potassium 3.4 L Chloride 108 H Carbon Dioxide 27 Anion Gap 11 BUN 67 H Creatinine 1.66 H Est GFR ( Amer) 36 L Est GFR (Non-Af Amer) 30 L Glucose 136 H Calcium 9.6 Impressions: Chest X-Ray 06/14/18 21:45 IMPRESSION: No evidence of acute cardiopulmonary disease. NUMBER OF VIEWS: TECHNIQUE: LIMITATIONS: None. FINDINGS: IMPRESSION: 2010 [employer]- All Rights Reserved Assessment & Plan - Diagnosis (1) Acute kidney injury Is this a current diagnosis for this admission?: Yes (2) Aphasia as late effect of cerebrovascular accident Is this a current diagnosis for this admission?: Yes (3) Hypoglycemia Is this a current diagnosis for this admission?: Yes Plan: Continue 10% dextrose with potassium
[2018-06-17] MEDS: DEXTROSE 10% IV PRN ×6 (01:13→20:59)
[2018-06-17] MEDS: WATER IV PRN ×6 (01:13→20:59)
[2018-06-17] MEDS: POTASSIUM CHLORIDE IV PRN ×6 (01:13→20:59)
[2018-06-17] MEDS: NORMAL SALINE INJ/PF 0.9% 10 ML SDV IV PRN (15:16)
--- NOTE | 2018-06-17 15:34 | PDOC PROGRESS REPORT ---
Subjective Progress Note for:: 06/17/18 Subjective:: Patient seen by the bedside, condition about the same Reason For Visit: HYPOGLYCEMIA,AMS,ARF Physical Exam Vital Signs: Temp Pulse Resp BP Pulse Ox 97.7 F 74 16 124/68 100 06/17/18 12:00 06/17/18 14:00 06/17/18 12:00 06/17/18 12:00 06/17/18 12:00 Intake & Output 06/16/18 06/17/18 06/18/18 06:59 06:59 06:59 Intake Total 1354 1050 1000 Output Total 1250 1050 Balance 104 0 1000 Weight 56.3 kg General appearance: PRESENT: no acute distress Eye exam: PRESENT: PERRLA Respiratory exam: PRESENT: clear to auscultation blake Cardiovascular exam: PRESENT: +S1, +S2 Murmur grade: 3 Results Laboratory Results: 06/16/18 08:00 06/16/18 08:00 Impressions: Chest X-Ray 06/14/18 21:45 IMPRESSION: No evidence of acute cardiopulmonary disease. NUMBER OF VIEWS: TECHNIQUE: LIMITATIONS: None. FINDINGS: IMPRESSION: 2010 [facility] [employer]- All Rights Reserved Assessment & Plan - Diagnosis (1) Acute kidney injury Is this a current diagnosis for this admission?: Yes (2) Aphasia as late effect of cerebrovascular accident Is this a current diagnosis for this admission?: Yes (3) Hypoglycemia Is this a current diagnosis for this admission?: Yes - Plan Summary Plan Summary: Continue treatment
[2018-06-18] MEDS: WATER IV PRN ×2 (06:00)
[2018-06-18] MEDS: DEXTROSE 10% IV PRN ×2 (06:00)
[2018-06-18] MEDS: POTASSIUM CHLORIDE IV PRN ×2 (06:00)
[2018-06-18] MEDS ORDERED: NORMAL SALINE 1000 ML 1,000 ML IV PRN (08:28)
[2018-06-18 09:56] LABS: ANION GAP 9 (5-19); BLOOD UREA NITROGEN 38 mg/dL (7-20); CALCIUM 9.7 mg/dL (8.4-10.2); CARBON DIOXIDE 25 mmol/L (22-30); CHLORIDE 102 mmol/L (98-107); GLUCOSE 94 mg/dL (75-110); POTASSIUM 5.2 mmol/L (3.6-5.0); SODIUM 135.7 mmol/L (137-145)
--- NOTE | 2018-06-18 12:12 | PDOC PROGRESS REPORT ---
Subjective Progress Note for:: 06/18/18 Subjective:: Patient remain nonverbal in responses. There is continue concern about swallowing ability. She had significant regurgitation and vomiting yesterday and currently on NPO status. No reported fever or chills. No noted difficulty with breathing. Remain on IV fluid with potassium replacement infusion. Reason For Visit: HYPOGLYCEMIA,AMS,ARF Physical Exam Vital Signs: Temp Pulse Resp BP Pulse Ox 98.2 F 69 22 H 117/68 100 06/18/18 07:42 06/18/18 07:42 06/18/18 07:42 06/18/18 07:42 06/18/18 07:42 Intake & Output 06/17/18 06/18/18 06/19/18 06:59 06:59 06:59 Intake Total 1050 3775 545 Output Total 1050 500 Balance 0 3275 545 Weight 56.1 kg General appearance: PRESENT: no acute distress Head exam: PRESENT: atraumatic, normocephalic Eye exam: PRESENT: conjunctiva pink Ear exam: PRESENT: normal external ear exam Mouth exam: PRESENT: moist - fairly improved Respiratory exam: PRESENT: clear to auscultation blake, decreased breath sounds - at lung bases Cardiovascular exam: PRESENT: RRR. ABSENT: diastolic murmur, rubs, systolic murmur Murmur grade: 3 Vascular exam: PRESENT: normal capillary refill. ABSENT: pallor GI/Abdominal exam: PRESENT: normal bowel sounds, soft. ABSENT: distended, guarding, mass, organolmegaly, rebound, tenderness Extremities exam: ABSENT: pedal edema Musculoskeletal exam: PRESENT: deformity - related to arthritis Neurological exam: PRESENT: altered Psychiatric exam: ABSENT: agitated Skin exam: PRESENT: dry, warm Results Laboratory Results: 06/16/18 08:00 06/18/18 09:10 06/18/18 09:10 Sodium 135.7 L Potassium 5.2 H Chloride 102 Carbon Dioxide 25 Anion Gap 9 BUN 38 H Creatinine 1.31 H Est GFR ( Amer) 48 L Est GFR (Non-Af Amer) 39 L Glucose 94 Calcium 9.7 Magnesium 2.1 Impressions: Chest X-Ray 06/14/18 21:45 IMPRESSION: No evidence of acute cardiopulmonary disease. NUMBER OF VIEWS: TECHNIQUE: LIMITATIONS: None. FINDINGS: IMPRESSION: 2010 [facility] [employer]- All Rights Reserved Assessment & Plan - Diagnosis (1) Altered mental status Qualifiers: Altered mental status type: somnolence Qualified Code(s): R40.0 - Somnolence Is this a current diagnosis for this admission?: Yes Plan: Her nonverbal status limit evaluation. She does hold on to hand by griping but not adequately following commands. (2) Acute renal failure (ARF) Qualifiers: Acute renal failure type: unspecified Qualified Code(s): N17.9 - Acute kidney failure, unspecified Is this a current diagnosis for this admission?: Yes Plan: Improving renal indices. Change IV fluid to D5N/S. Check BMP and mag level. (3) Dehydration, severe Is this a current diagnosis for this admission?: Yes Plan: Improving hydration status. Continue IV fluid support. (4) HTN (hypertension) Qualifiers: Hypertension type: essential hypertension Qualified Code(s): I10 - Essential (primary) hypertension Is this a current diagnosis for this admission?: Yes Plan: Continue current medication management. 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 Obtain swallowing evaluation. (6) Hemiparesis affecting right side as late effect of cerebrovascular accident Is this a current diagnosis for this admission?: Yes Plan: Continue current medication management. - Time Time Spent with patient: 25-34 minutes Medications reviewed and adjusted accordingly: Yes Anticipated discharge: Home with Homehealth, SNF Within: Other - Inpatient Certification Based on my medical assessment, after consideration of the patient's comorbidities, presenting symptoms, or acuity I expect that the services needed warrant INPATIENT care.: Yes I certify that my determination is in accordance with my understanding of Medicare's requirements for reasonable and necessary INPATIENT services [42 CFR 412.3e].: Yes Medical Necessity: Need Close Monitoring Due to Risk of Patient Decompensation, Need For IV Fluids, Need For Continuous Telemetry Monitoring, Risk of Complication if Not Cared For in Hospital Post Hospital Care: D/C Master Control Operator Documentation - Plan Summary Plan Summary: See attending physician orders. Overall prognosis remain on guarded. Patient remain on DNR status.
[2018-06-18] MEDS: DEXTROSE 5%-NORMAL SALINE 1,000 ML IV PRN ×2 (12:31→22:59)
[2018-06-18] MEDS: LATANOPROST 0.005% OPH SOLN 2.5 ML OD SCH (21:06)
[2018-06-19 05:54] LABS: ABSOLUTE EOSINOPHILS # (AUTO) 0.1 10^3/uL (0.0-0.6); ABSOLUTE LYMPHOCYTES (AUTO) 1.6 10^3/uL (0.5-4.7); ABSOLUTE MONOCYTES (AUTO) 0.4 10^3/uL (0.1-1.4); ABSOLUTE NEUT (AUTO) 6.5 10^3/uL (1.7-8.2); BASOPHILS % (AUTO) 0.3 % (0-2); EOSINOPHILS % (AUTO) 0.8 % (0-6); HEMOGLOBIN 10.1 g/dL (12.0-15.5); LYMPHOCYTES % (AUTO) 18.7 % (13-45); MEAN CORPUSCULAR HEMOGLOBIN 31.9 pg (27.0-33.4); MEAN CORPUSCULAR HGB CONC 33.7 g/dL (32.0-36.0); MEAN CORPUSCULAR VOLUME 95 fl (80-97); MONOCYTES % (AUTO) 4.6 % (3-13); PLATELET COUNT 181 10^3/uL (150-450); RED BLOOD COUNT 3.17 10^6/uL (3.72-5.28); RED CELL DISTRIBUTION WIDTH 12.7 % (11.5-14.0); SEGMENTED NEUTROPHILS % (AUTO) 75.6 % (42-78); TOTAL CELLS COUNTED % (AUTO) 100 %; WHITE BLOOD COUNT 8.6 10^3/uL (4.0-10.5)
[2018-06-19 06:01] LABS: ANION GAP 9 (5-19); BLOOD UREA NITROGEN 23 mg/dL (7-20); CALCIUM 9.3 mg/dL (8.4-10.2); CARBON DIOXIDE 25 mmol/L (22-30); CHLORIDE 107 mmol/L (98-107); GLUCOSE 101 mg/dL (75-110); POTASSIUM 4.4 mmol/L (3.6-5.0); SODIUM 140.7 mmol/L (137-145)
--- NOTE | 2018-06-19 08:25 | PDOC PROGRESS REPORT ---
Subjective Progress Note for:: 06/19/18 Subjective:: Patient is more lucid and appropriate in responses this morning. She is agreeable to try oral feeding today. No chest pain or difficulty with breathing. Reported passage of some amount of hard stool since last night. Reason For Visit: HYPOGLYCEMIA,AMS,ARF Physical Exam Vital Signs: Temp Pulse Resp BP Pulse Ox 97.6 F 64 12 139/79 H 98 06/19/18 03:31 06/19/18 03:31 06/19/18 03:31 06/19/18 03:31 06/19/18 03:31 Intake & Output 06/18/18 06/19/18 06/20/18 06:59 06:59 06:59 Intake Total 3775 2000 Output Total 500 1400 Balance 3275 600 Weight 56.1 kg 66.5 kg General appearance: PRESENT: no acute distress Head exam: PRESENT: atraumatic, normocephalic Eye exam: PRESENT: conjunctiva pink, EOMI, PERRLA. ABSENT: scleral icterus Ear exam: PRESENT: normal external ear exam Mouth exam: PRESENT: moist Respiratory exam: PRESENT: clear to auscultation blake, decreased breath sounds - at lung bases Cardiovascular exam: PRESENT: RRR. ABSENT: diastolic murmur, rubs, systolic murmur Murmur grade: 3 Vascular exam: PRESENT: normal capillary refill, other - left eye corneal opacity. ABSENT: pallor GI/Abdominal exam: PRESENT: normal bowel sounds, soft. ABSENT: distended, guarding, mass, organolmegaly, rebound, tenderness Extremities exam: ABSENT: pedal edema Musculoskeletal exam: PRESENT: other - contracture deformity left extremities Neurological exam: PRESENT: alert, awake, oriented to person, oriented to time, other - left hemiparesis Psychiatric exam: PRESENT: appropriate affect, normal mood. ABSENT: homicidal ideation, suicidal ideation Skin exam: PRESENT: dry, intact, warm. ABSENT: cyanosis, rash Results Laboratory Results: 06/19/18 05:30 06/19/18 05:30 06/18/18 06/19/18 06/19/18 09:10 05:30 05:30 WBC 8.6 RBC 3.17 L Hgb 10.1 L Hct 30.0 L MCV 95 MCH 31.9 MCHC 33.7 RDW 12.7 Plt Count 181 Seg Neutrophils % 75.6 Lymphocytes % 18.7 Monocytes % 4.6 Eosinophils % 0.8 Basophils % 0.3 Absolute Neutrophils 6.5 Absolute Lymphocytes 1.6 Absolute Monocytes 0.4 Absolute Eosinophils 0.1 Absolute Basophils 0.0 Sodium 135.7 L 140.7 Potassium 5.2 H 4.4 Chloride 102 107 Carbon Dioxide 25 25 Anion Gap 9 9 BUN 38 H 23 H Creatinine 1.31 H 0.95 Est GFR ( Amer) 48 L > 60 Est GFR (Non-Af Amer) 39 L 57 L Glucose 94 101 Calcium 9.7 9.3 Magnesium 2.1 Impressions: Chest X-Ray 06/14/18 21:45 IMPRESSION: No evidence of acute cardiopulmonary disease. NUMBER OF VIEWS: TECHNIQUE: LIMITATIONS: None. FINDINGS: IMPRESSION: 2010 [employer]- All Rights Reserved Assessment & Plan - Diagnosis (1) Altered mental status Qualifiers: Altered mental status type: somnolence Qualified Code(s): R40.0 - Somnolence Is this a current diagnosis for this admission?: Yes Plan: Improving with her more verbally engaged today. (2) Acute renal failure (ARF) Qualifiers: Acute renal failure type: unspecified Qualified Code(s): N17.9 - Acute kidney failure, unspecified Is this a current diagnosis for this admission?: Yes Plan: Improving renal indices. Continue IV hydration. Monitor renal indices. (3) Dehydration, severe Is this a current diagnosis for this admission?: Yes (4) HTN (hypertension) Qualifiers: Hypertension type: essential hypertension Qualified Code(s): I10 - Essential (primary) hypertension Is this a current diagnosis for this admission?: Yes Plan: Fairly controlled. 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 (6) Hemiparesis affecting right side as late effect of cerebrovascular accident Is this a current diagnosis for this admission?: Yes Plan: Continue current medication management. Follow up on swallowing safety re- evaluation. - Time Time Spent with patient: 25-34 minutes Medications reviewed and adjusted accordingly: Yes Anticipated discharge: Home with Homehealth, SNF Within: Other - Inpatient Certification Based on my medical assessment, after consideration of the patient's comorbidities, presenting symptoms, or acuity I expect that the services needed warrant INPATIENT care.: Yes I certify that my determination is in accordance with my understanding of Medicare's requirements for reasonable and necessary INPATIENT services [42 CFR 412.3e].: Yes Medical Necessity: Need Close Monitoring Due to Risk of Patient Decompensation, Need For IV Fluids, Risk of Complication if Not Cared For in Hospital Post Hospital Care: D/C Lifestyle Director Documentation - Plan Summary Plan Summary: Continue IV fluid support. Request re-evaluation by speech pathologist for swallowing safety. Maintain on all other current medication management.
[2018-06-19] MEDS: DEXTROSE 5%-NORMAL SALINE 1,000 ML IV PRN ×2 (09:44→18:54)
[2018-06-19] MEDS: LATANOPROST 0.005% OPH SOLN 2.5 ML OD SCH (22:52)
[2018-06-20] MEDS: DEXTROSE 5%-NORMAL SALINE 1,000 ML IV PRN ×2 (05:49→15:52)
[2018-06-20 07:03] LABS: ANION GAP 7 (5-19); BLOOD UREA NITROGEN 18 mg/dL (7-20); CALCIUM 8.7 mg/dL (8.4-10.2); CARBON DIOXIDE 28 mmol/L (22-30); CHLORIDE 107 mmol/L (98-107); GLUCOSE 111 mg/dL (75-110); SODIUM 141.7 mmol/L (137-145)
--- NOTE | 2018-06-20 18:40 | PDOC PROGRESS REPORT ---
Subjective Progress Note for:: 06/20/18 Subjective:: Patient had significant vomiting following her lunch feeding period with vomitus mainly food material from breakfast and lunch period. No reported bowel movement since admission except single episode of small brick red color, hard stool two days ago. She denied abdominal pain. No chest pain or difficulty with breathing. Reason For Visit: HYPOGLYCEMIA,AMS,ARF Physical Exam Vital Signs: Temp Pulse Resp BP Pulse Ox 99.3 F 86 16 139/70 H 100 06/20/18 15:02 06/20/18 15:02 06/20/18 15:02 06/20/18 15:02 06/20/18 15:02 Intake & Output 06/19/18 06/20/18 06/21/18 06:59 06:59 06:59 Intake Total 1999 2917 2089 Output Total 1400 2625 1400 Balance 600 292 689 Weight 66.5 kg 67.7 kg Physical Exam: General appearance: PRESENT: no acute distress Head exam: PRESENT: atraumatic, normocephalic Eye exam: PRESENT: conjunctiva pink, EOMI, PERRLA. ABSENT: scleral icterus Ear exam: PRESENT: normal external ear exam Mouth exam: PRESENT: moist Respiratory exam: PRESENT: clear to auscultation blake, decreased breath sounds - at lung bases Cardiovascular exam: PRESENT: RRR. ABSENT: diastolic murmur, rubs, systolic murmur Murmur grade: 3 Vascular exam: PRESENT: normal capillary refill, other - left eye corneal opacity. ABSENT: pallor GI/Abdominal exam: PRESENT: normal bowel sounds, soft. ABSENT: distended, guarding, mass, organomegaly, rebound, tenderness Extremities exam: ABSENT: pedal edema Musculoskeletal exam: PRESENT: other - contracture deformity right extremities Neurological exam: PRESENT: alert, awake, oriented to person, oriented to time, other - right hemiparesis Psychiatric exam: PRESENT: appropriate affect, normal mood. ABSENT: homicidal ideation, suicidal ideation Skin exam: PRESENT: dry, intact, warm. ABSENT: cyanosis, rash Murmur grade: 3 Results Laboratory Results: 06/19/18 05:30 06/20/18 06:00 06/20/18 06:00 Sodium 141.7 Potassium 4.0 Chloride 107 Carbon Dioxide 28 Anion Gap 7 BUN 18 Creatinine 0.78 Est GFR ( Amer) > 60 Est GFR (Non-Af Amer) > 60 Glucose 111 H Calcium 8.7 Impressions: Chest X-Ray 06/14/18 21:45 IMPRESSION: No evidence of acute cardiopulmonary disease. NUMBER OF VIEWS: TECHNIQUE: LIMITATIONS: None. FINDINGS: IMPRESSION: 2010 [facility]- All Rights Reserved Assessment & Plan - Diagnosis (1) Altered mental status Qualifiers: Altered mental status type: somnolence Qualified Code(s): R40.0 - Somnolence Is this a current diagnosis for this admission?: Yes Plan: Improving but less engaging today at the time of my assessment. (2) Acute renal failure (ARF) Qualifiers: Acute renal failure type: unspecified Qualified Code(s): N17.9 - Acute kidney failure, unspecified Is this a current diagnosis for this admission?: Yes Plan: Improving on IV fluid support. (3) Dehydration, severe Is this a current diagnosis for this admission?: Yes Plan: Improving on IV fluid support (4) HTN (hypertension) Qualifiers: Hypertension type: essential hypertension Qualified Code(s): I10 - Essential (primary) hypertension Is this a current diagnosis for this admission?: Yes Plan: Fairly controlled. Continue current medication management. 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 (6) Hemiparesis affecting right side as late effect of cerebrovascular accident Is this a current diagnosis for this admission?: Yes Plan: Continue current support care and medication management. (7) Vomiting Qualifiers: Vomiting type: unspecified Nausea presence: without nausea Is this a current diagnosis for this admission?: Yes Plan: Probable due to constipation but other consideration include possible UTI. Obtain chest X ray, KUB abdomen and Urinalysis with microscopy. - Time Time Spent with patient: 25-34 minutes Medications reviewed and adjusted accordingly: Yes Anticipated discharge: Home with Homehealth Within: Other - Inpatient Certification Based on my medical assessment, after consideration of the patient's comorbidities, presenting symptoms, or acuity I expect that the services needed warrant INPATIENT care.: Yes I certify that my determination is in accordance with my understanding of Medicare's requirements for reasonable and necessary INPATIENT services [42 CFR 412.3e].: Yes Medical Necessity: Need For IV Fluids, Need For Continuous Telemetry Monitoring , Risk of Complication if Not Cared For in Hospital Post Hospital Care: D/C Trimmer Sorter Documentation - Plan Summary Plan Summary: See attending physician orders.
[2018-06-20] MEDS ORDERED: BISACODYL 10 MG SUPP.RECT PR ONE (18:41)
--- NOTE | 2018-06-20 20:33 | RADIOLOGY REPORT (SQ) ---
EXAM DESCRIPTION: KUB/ABDOMEN (SINGLE VIEW) COMPLETED DATE/TIME: 06/20/2018 8:25 pm REASON FOR STUDY: Vomiting COMPARISON: None. NUMBER OF VIEWS: One view. TECHNIQUE: Supine radiographic image of the abdomen acquired. LIMITATIONS: None. FINDINGS: BOWEL GAS PATTERN: Normal bowel gas pattern. No dilated loops. CONSTIPATION: moderate CALCIFICATIONS: No suspicious calcifications. SOFT TISSUES: No gross mass or suggestion of organomegaly. HARDWARE: None in the abdomen. BONES: No acute fracture. No worrisome bone lesions. OTHER: No other significant finding. IMPRESSION: NO RADIOGRAPHIC EVIDENCE FOR ACUTE ABDOMINAL DISEASE. Moderate constipation. TECHNICAL DOCUMENTATION: JOB ID: [id number] [employer]- All Rights Reserved Reading location - IP/workstation name: [email or web address]
--- NOTE | 2018-06-20 20:34 | RADIOLOGY REPORT (SQ) ---
EXAM DESCRIPTION: CHEST SINGLE VIEW COMPLETED DATE/TIME: 06/20/2018 8:25 pm REASON FOR STUDY: DECREASED O2 STAT COMPARISON: 06/14/2018 EXAM PARAMETERS: NUMBER OF VIEWS: One view. TECHNIQUE: Single frontal radiographic view of the chest acquired. RADIATION DOSE: NA LIMITATIONS: None. FINDINGS: LUNGS AND PLEURA: No opacities, masses or pneumothorax. No pleural effusion. MEDIASTINUM AND HILAR STRUCTURES: No masses. Contour normal. HEART AND VASCULAR STRUCTURES: Heart enlarged without failure. BONES: No acute findings. HARDWARE: Venous access catheter via left IJ approach. Tip in the right atrium. OTHER: No other significant finding. IMPRESSION: NO ACUTE RADIOGRAPHIC FINDING IN THE CHEST. TECHNICAL DOCUMENTATION: JOB ID: [id number] [employer]- All Rights Reserved Reading location - IP/workstation name: [email or web address]
[2018-06-20] MEDS: LATANOPROST 0.005% OPH SOLN 2.5 ML OD SCH (22:13)
[2018-06-20 22:24] LABS: APPEARANCE,URINE SLIGHTLY-CLOUDY; BILIRUBIN,URINE NEGATIVE (NEGATIVE); COLOR,URINE YELLOW; GLUCOSE, URINE NEGATIVE (NEGATIVE); KETONES,URINE NEGATIVE (NEGATIVE); LEUKOCYTE ESTERASE,URINE LARGE (NEGATIVE); NITRITE,URINE POSITIVE (NEGATIVE); PROTEIN,URINE NEGATIVE (NEGATIVE); URINE SPECIFIC GRAVITY 1.012
[2018-06-21] MEDS: DEXTROSE 5%-NORMAL SALINE 1,000 ML IV PRN ×2 (01:39→11:32)
[2018-06-21 06:06] LABS: ABSOLUTE EOSINOPHILS # (AUTO) 0.2 10^3/uL (0.0-0.6); ABSOLUTE LYMPHOCYTES (AUTO) 1.5 10^3/uL (0.5-4.7); ABSOLUTE MONOCYTES (AUTO) 0.4 10^3/uL (0.1-1.4); ABSOLUTE NEUT (AUTO) 5.1 10^3/uL (1.7-8.2); BASOPHILS % (AUTO) 0.1 % (0-2); EOSINOPHILS % (AUTO) 2.1 % (0-6); HEMATOCRIT 24.8 % (36.0-47.0); HEMOGLOBIN 8.7 g/dL (12.0-15.5); LYMPHOCYTES % (AUTO) 20.7 % (13-45); MEAN CORPUSCULAR HEMOGLOBIN 32.7 pg (27.0-33.4); MEAN CORPUSCULAR HGB CONC 35.1 g/dL (32.0-36.0); MEAN CORPUSCULAR VOLUME 93 fl (80-97); MONOCYTES % (AUTO) 5.5 % (3-13); PLATELET COUNT 157 10^3/uL (150-450); RED BLOOD COUNT 2.66 10^6/uL (3.72-5.28); RED CELL DISTRIBUTION WIDTH 12.6 % (11.5-14.0); SEGMENTED NEUTROPHILS % (AUTO) 71.6 % (42-78); TOTAL CELLS COUNTED % (AUTO) 100 %; WHITE BLOOD COUNT 7.2 10^3/uL (4.0-10.5)
[2018-06-21 06:40] LABS: ALANINE AMINOTRANSFERASE 33 U/L (9-52); ALBUMIN 2.3 g/dL (3.5-5.0); ALKALINE PHOSPHATASE 62 U/L (38-126); ANION GAP 6 (5-19); ASPARTATE AMINO TRANSFERASE 40 U/L (14-36); BILIRUBIN,TOTAL 0.4 mg/dL (0.2-1.3); BLOOD UREA NITROGEN 12 mg/dL (7-20); CALCIUM 8.7 mg/dL (8.4-10.2); CARBON DIOXIDE 30 mmol/L (22-30); CHLORIDE 107 mmol/L (98-107); GLUCOSE 96 mg/dL (75-110); POTASSIUM 3.5 mmol/L (3.6-5.0); SODIUM 142.7 mmol/L (137-145); TOTAL PROTEIN 5.1 g/dL (6.3-8.2)
[2018-06-21] MEDS ORDERED: BISACODYL 10 MG SUPP.RECT PR ONE ×2 (08:00→18:00)
--- NOTE | 2018-06-21 08:29 | PDOC PROGRESS REPORT ---
Subjective Progress Note for:: 06/21/18 Subjective:: Patient had significant bowel movement but KUB suggested moderate constipation. No recurrent vomiting. No fever. No chest pain or difficulty with breathing. Reason For Visit: HYPOGLYCEMIA,AMS,ARF Physical Exam Vital Signs: Temp Pulse Resp BP Pulse Ox 97.8 F 60 15 135/54 H 100 06/21/18 08:00 06/21/18 08:00 06/21/18 08:00 06/21/18 08:00 06/21/18 08:00 Intake & Output 06/20/18 06/21/18 06/22/18 06:59 06:59 06:59 Intake Total 2917 3304 Output Total 2625 1800 Balance 292 1504 Weight 67.7 kg 66.9 kg Physical Exam: General appearance: PRESENT: no acute distress Head exam: PRESENT: atraumatic, normocephalic Eye exam: PRESENT: conjunctiva pink, EOMI, PERRLA. ABSENT: scleral icterus Ear exam: PRESENT: normal external ear exam Mouth exam: PRESENT: moist Respiratory exam: PRESENT: clear to auscultation blake, decreased breath sounds - at lung bases Cardiovascular exam: PRESENT: RRR. ABSENT: diastolic murmur, rubs, systolic murmur Murmur grade: 3 Vascular exam: PRESENT: left eye corneal opacity. ABSENT: pallor GI/Abdominal exam: PRESENT: normal bowel sounds, soft. ABSENT: distended, guarding, mass, organomegaly, rebound, tenderness Extremities exam: ABSENT: pedal edema Musculoskeletal exam: PRESENT: other - contracture deformity right extremities Neurological exam: PRESENT: alert, awake, oriented to person, oriented to time, other - right hemiparesis Psychiatric exam: PRESENT: appropriate affect, normal mood. ABSENT: homicidal ideation, suicidal ideation Skin exam: PRESENT: dry, intact, warm. ABSENT: cyanosis, rash Murmur grade: 3 Results Laboratory Results: 06/21/18 06:00 06/21/18 06:00 06/20/18 06/21/18 06/21/18 21:55 06:00 06:00 WBC 7.2 RBC 2.66 L Hgb 8.7 L Hct 24.8 L MCV 93 MCH 32.7 MCHC 35.1 RDW 12.6 Plt Count 157 Seg Neutrophils % 71.6 Lymphocytes % 20.7 Monocytes % 5.5 Eosinophils % 2.1 Basophils % 0.1 Absolute Neutrophils 5.1 Absolute Lymphocytes 1.5 Absolute Monocytes 0.4 Absolute Eosinophils 0.2 Absolute Basophils 0.0 Sodium 142.7 Potassium 3.5 L Chloride 107 Carbon Dioxide 30 Anion Gap 6 BUN 12 Creatinine 0.88 Est GFR ( Amer) > 60 Est GFR (Non-Af Amer) > 60 Glucose 96 Calcium 8.7 Total Bilirubin 0.4 AST 40 H ALT 33 Alkaline Phosphatase 62 Total Protein 5.1 L Albumin 2.3 L Urine Color YELLOW Urine Appearance SLIGHTLY-CLOUDY Urine pH 6.0 Ur Specific [place] 1.012 Urine Protein NEGATIVE Urine Glucose (UA) NEGATIVE Urine Ketones NEGATIVE Urine Blood LARGE H Urine Nitrite POSITIVE H Ur Leukocyte Esterase LARGE H Urine WBC (Auto) >182 Urine RBC (Auto) 53 Impressions: Chest X-Ray 06/20/18 00:00 IMPRESSION: NO ACUTE RADIOGRAPHIC FINDING IN THE CHEST. KUB X-Ray 06/20/18 00:00 IMPRESSION: NO RADIOGRAPHIC EVIDENCE FOR ACUTE ABDOMINAL DISEASE. Moderate constipation. Assessment & Plan - Diagnosis (1) Altered mental status Qualifiers: Altered mental status type: somnolence Qualified Code(s): R40.0 - Somnolence Is this a current diagnosis for this admission?: Yes Plan: Related to her acute illness with renal failure, poor oral intake, and possible ongoing infection. (2) Acute renal failure (ARF) Qualifiers: Acute renal failure type: unspecified Qualified Code(s): N17.9 - Acute kidney failure, unspecified Is this a current diagnosis for this admission?: Yes Plan: Improving on IV fluid support. 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 U/A suggestive of possible UTI pending urine culture, KUB revealed moderate constipation. (8) UTI (urinary tract infection), bacterial Is this a current diagnosis for this admission?: Yes Plan: Obtain urine culture. Start on IV Rocephin coverage. - Time Time Spent with patient: 25-34 minutes Medications reviewed and adjusted accordingly: Yes Anticipated discharge: Home with Homehealth, SNF Within: Other - Inpatient Certification Based on my medical assessment, after consideration of the patient's comorbidities, presenting symptoms, or acuity I expect that the services needed warrant INPATIENT care.: Yes I certify that my determination is in accordance with my understanding of Medicare's requirements for reasonable and necessary INPATIENT services [42 CFR 412.3e].: Yes Medical Necessity: Need Close Monitoring Due to Risk of Patient Decompensation, Need For IV Fluids, Need for IV Antibiotics, Risk of Complication if Not Cared For in Hospital Post Hospital Care: D/C City Engineer Documentation - Plan Summary Plan Summary: See attending physician orders.
[2018-06-21] MEDS ORDERED: CEFTRIAXONE 1 GM/D5W RTU 1 GM/50 ML RTUPB IV SCH (10:00)
[2018-06-21] MEDS: CEFTRIAXONE SODIUM 1,000 MG in DEXTROSE 5%-WATER 50 ML IV SCH (10:38)
[2018-06-21] MEDS: LATANOPROST 0.005% OPH SOLN 2.5 ML OD SCH (22:33)
[2018-06-22] MEDS: DEXTROSE 5%-NORMAL SALINE 1,000 ML IV PRN ×2 (07:38→18:04)
[2018-06-22] MEDS: CEFTRIAXONE SODIUM 1,000 MG in DEXTROSE 5%-WATER 50 ML IV SCH (09:55)
--- NOTE | 2018-06-22 15:49 | PDOC PROGRESS REPORT ---
Subjective Progress Note for:: 06/22/18 Subjective:: No fever or chills. No chest pain or difficulty with breathing. No nausea, vomiting, or abdominal pain. P.O intake still a challenge. Reason For Visit: HYPOGLYCEMIA,AMS,ARF Physical Exam Vital Signs: Temp Pulse Resp BP Pulse Ox 99.0 F 69 16 131/58 H 99 06/22/18 12:02 06/22/18 12:02 06/22/18 12:02 06/22/18 12:02 06/22/18 12:02 Intake & Output 06/21/18 06/22/18 06/23/18 06:59 06:59 06:59 Intake Total 3304 3535 50 Output Total 1800 1350 Balance 1504 2185 50 Weight 66.9 kg 67.7 kg Physical Exam: General appearance: PRESENT: no acute distress Head exam: PRESENT: atraumatic, normocephalic Eye exam: PRESENT: conjunctiva pink. ABSENT: scleral icterus Ear exam: PRESENT: normal external ear exam Mouth exam: PRESENT: moist Respiratory exam: PRESENT: clear to auscultation blake, decreased breath sounds - at lung bases Cardiovascular exam: PRESENT: RRR. ABSENT: diastolic murmur, rubs, systolic murmur Murmur grade: 3 Vascular exam: PRESENT: left eye corneal opacity. ABSENT: pallor GI/Abdominal exam: PRESENT: normal bowel sounds, soft. ABSENT: distended, guarding, mass, organomegaly, rebound, tenderness Extremities exam: ABSENT: pedal edema Musculoskeletal exam: PRESENT: other - contracture deformity right extremities Neurological exam: PRESENT: alert, awake, oriented to person, oriented to time, other - right hemiparesis Psychiatric exam: PRESENT: appropriate affect, normal mood. ABSENT: homicidal ideation, suicidal ideation Skin exam: PRESENT: dry, intact, warm. ABSENT: cyanosis, rash Murmur grade: 3 Results Laboratory Results: 06/21/18 06:00 06/21/18 06:00 Impressions: Chest X-Ray 06/20/18 00:00 IMPRESSION: NO ACUTE RADIOGRAPHIC FINDING IN THE CHEST. KUB X-Ray 06/20/18 00:00 IMPRESSION: NO RADIOGRAPHIC EVIDENCE FOR ACUTE ABDOMINAL DISEASE. Moderate constipation. Assessment & Plan - Diagnosis (1) Toxic metabolic encephalopathy Is this a current diagnosis for this admission?: Yes Plan: Due to her severe dehydration and ongoing infection. Improving. Maintain on IV fluid support and antibiotic coverage. (2) UTI (urinary tract infection), bacterial Is this a current diagnosis for this admission?: Yes Plan: Maintain on IV Rocephin coverage. Follow up on culture findings. (3) Acute renal failure (ARF) Qualifiers: Acute renal failure type: unspecified Qualified Code(s): N17.9 - Acute kidney failure, unspecified Is this a current diagnosis for this admission?: Yes Plan: Resolving. (4) Dehydration, severe Is this a current diagnosis for this admission?: Yes Plan: Resolving. 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 - Time Time Spent with patient: 25-34 minutes Medications reviewed and adjusted accordingly: Yes Anticipated discharge: Home with Homehealth Within: Other - Inpatient Certification Based on my medical assessment, after consideration of the patient's comorbidities, presenting symptoms, or acuity I expect that the services needed warrant INPATIENT care.: Yes I certify that my determination is in accordance with my understanding of Medicare's requirements for reasonable and necessary INPATIENT services [42 CFR 412.3e].: Yes Medical Necessity: Need Close Monitoring Due to Risk of Patient Decompensation, Need For IV Fluids, Need for IV Antibiotics, Risk of Complication if Not Cared For in Hospital Post Hospital Care: D/C Reel Film Inspector Documentation - Plan Summary Plan Summary: Continue IV Rocephin coverage. Follow up on urine culture findings. Maintain on IV fluid support.
[2018-06-22] MEDS: LATANOPROST 0.005% OPH SOLN 2.5 ML OD SCH (21:15)
[2018-06-23] MEDS: DEXTROSE 5%-NORMAL SALINE 1,000 ML IV PRN ×3 (04:17→23:21)
[2018-06-23] MEDS: CEFTRIAXONE SODIUM 1,000 MG in DEXTROSE 5%-WATER 50 ML IV SCH (10:35)
--- NOTE | 2018-06-23 10:37 | PDOC PROGRESS REPORT ---
Subjective Progress Note for:: 06/23/18 Subjective:: Patient was admitted for the urinary tract infections dehydration's and metabolic encephalopathy Patient also has significant dementia's Patient is currently on IV Rocephin Urine cultures gram-negative organism still pending sensitivity According to the nursing staff patient is doing fair P.o. intake is still fair No fever no chills Reason For Visit: HYPOGLYCEMIA,AMS,ARF Physical Exam Vital Signs: Temp Pulse Resp BP Pulse Ox 98.4 F 63 12 177/66 H 99 06/23/18 07:36 06/23/18 07:36 06/23/18 07:36 06/23/18 07:36 06/23/18 07:36 Intake & Output 06/22/18 06/23/18 06/24/18 06:59 06:59 05:59 Intake Total 3535 3114 Output Total 1350 1575 Balance 2185 1539 Weight 67.7 kg 71.5 kg General appearance: PRESENT: no acute distress Head exam: PRESENT: atraumatic, normocephalic Eye exam: PRESENT: conjunctiva pink, EOMI, PERRLA. ABSENT: scleral icterus Ear exam: PRESENT: normal external ear exam Mouth exam: PRESENT: moist, tongue midline Neck exam: PRESENT: full ROM. ABSENT: carotid bruit, JVD, lymphadenopathy, thyromegaly Cardiovascular exam: PRESENT: RRR. ABSENT: diastolic murmur, rubs, systolic murmur Murmur grade: 3 Pulses: PRESENT: normal dorsalis pedis pul, +2 pedal pulses bilateral Vascular exam: PRESENT: normal capillary refill GI/Abdominal exam: PRESENT: normal bowel sounds, soft. ABSENT: distended, guarding, mass, organolmegaly, rebound, tenderness Rectal exam: PRESENT: deferred Neurological exam: PRESENT: alert, awake. ABSENT: motor sensory deficit Psychiatric exam: PRESENT: appropriate affect, normal mood. ABSENT: homicidal ideation, suicidal ideation Skin exam: PRESENT: dry, intact, warm. ABSENT: cyanosis, rash Results Laboratory Results: 06/21/18 06:00 06/21/18 06:00 Impressions: Chest X-Ray 06/20/18 00:00 IMPRESSION: NO ACUTE RADIOGRAPHIC FINDING IN THE CHEST. KUB X-Ray 06/20/18 00:00 IMPRESSION: NO RADIOGRAPHIC EVIDENCE FOR ACUTE ABDOMINAL DISEASE. Moderate constipation. 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 Qualified Code (s): N17.1 - Acute kidney failure with acute cortical necrosis Is this a current diagnosis for this admission?: Yes Plan: Will repeat the BMP in the morning (4) UTI (urinary tract infection), bacterial Is this a current diagnosis for this admission?: Yes Plan: Continue IV Rocephin will wait for the culture and sensitivity (5) HTN (hypertension) Qualifiers: Hypertension type: essential hypertension Qualified Code(s): I10 - Essential (primary) hypertension Is this a current diagnosis for this admission?: Yes Plan: all stable (6) Hemiparesis affecting right side as late effect of cerebrovascular accident Is this a current diagnosis for this admission?: Yes - Time Time Spent with patient: 15-24 minutes Medications reviewed and adjusted accordingly: Yes Anticipated discharge: SNF, Other Within: Other - Inpatient Certification Based on my medical assessment, after consideration of the patient's comorbidities, presenting symptoms, or acuity I expect that the services needed warrant INPATIENT care.: Yes I certify that my determination is in accordance with my understanding of Medicare's requirements for reasonable and necessary INPATIENT services [42 CFR 412.3e].: Yes Medical Necessity: Need Close Monitoring Due to Risk of Patient Decompensation, Need for IV Antibiotics Post Hospital Care: D/C Sheet Hanger Documentation - Plan Summary Plan Summary: Continue current medication
[2018-06-23] MEDS: ONDANSETRON HCL INJ/PF 4 MG/2 ML SDV IV PRN (17:47)
[2018-06-23] MEDS: LATANOPROST 0.005% OPH SOLN 2.5 ML OD SCH (22:50)
[2018-06-23] MEDS: NORMAL SALINE INJ/PF 0.9% 10 ML SDV IV PRN (22:50)
[2018-06-24] MEDS: ONDANSETRON HCL INJ/PF 4 MG/2 ML SDV IV PRN (06:12)
--- NOTE | 2018-06-24 09:15 | PDOC PROGRESS REPORT ---
Subjective Progress Note for:: 06/24/18 Subjective:: Patient's p.o. intake is very low Patient was nauseating last night Patient's otherwise pretty much same Patient's urine culture was sensitive to the Rocephin Reason For Visit: HYPOGLYCEMIA,AMS,ARF Physical Exam Vital Signs: Temp Pulse Resp BP Pulse Ox 98.8 F 71 16 137/61 H 99 06/24/18 07:46 06/24/18 07:46 06/24/18 07:46 06/24/18 07:46 06/24/18 07:46 Intake & Output 06/23/18 06/24/18 06/25/18 07:59 06:59 06:59 Intake Total Output Total Balance Weight Physical Exam: Significant dementia's General appearance: PRESENT: no acute distress Eye exam: PRESENT: PERRLA Mouth exam: PRESENT: neck supple Respiratory exam: PRESENT: clear to auscultation blake Cardiovascular exam: PRESENT: +S1, +S2 Murmur grade: 3 GI/Abdominal exam: PRESENT: normal bowel sounds, soft Extremities exam: ABSENT: pedal edema Neurological exam: PRESENT: alert Skin exam: PRESENT: dry Results Laboratory Results: 06/21/18 06:00 06/21/18 06:00 Impressions: Chest X-Ray 06/20/18 00:00 IMPRESSION: NO ACUTE RADIOGRAPHIC FINDING IN THE CHEST. KUB X-Ray 06/20/18 00:00 IMPRESSION: NO RADIOGRAPHIC EVIDENCE FOR ACUTE ABDOMINAL DISEASE. Moderate constipation. 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 Qualified Code (s): N17.1 - Acute kidney failure with acute cortical necrosis Is this a current diagnosis for this admission?: Yes Plan: Will repeat the BMP in the morning (4) UTI (urinary tract infection), bacterial Is this a current diagnosis for this admission?: Yes Plan: Continue IV Rocephin will wait for the culture and sensitivity (5) HTN (hypertension) Qualifiers: Hypertension type: essential hypertension Qualified Code(s): I10 - Essential (primary) hypertension Is this a current diagnosis for this admission?: Yes Plan: all stable (6) Hemiparesis affecting right side as late effect of cerebrovascular accident Is this a current diagnosis for this admission?: Yes - Time Time Spent with patient: 15-24 minutes Medications reviewed and adjusted accordingly: Yes Anticipated discharge: SNF Within: Other - Inpatient Certification Based on my medical assessment, after consideration of the patient's comorbidities, presenting symptoms, or acuity I expect that the services needed warrant INPATIENT care.: Yes I certify that my determination is in accordance with my understanding of Medicare's requirements for reasonable and necessary INPATIENT services [42 CFR 412.3e].: Yes Medical Necessity: Significant Comorbidiites Make Outpatient Treatment Too Risky Post Hospital Care: D/C Steel Roller Documentation - Plan Summary Plan Summary: Will get the x-ray KUB continues IV Rocephin
[2018-06-24] MEDS: DEXTROSE 5%-NORMAL SALINE 500 ML IV PRN ×2 (09:41→15:06)
[2018-06-24] MEDS: CEFTRIAXONE SODIUM 1,000 MG in DEXTROSE 5%-WATER 50 ML IV SCH (10:18)
--- NOTE | 2018-06-24 10:19 | RADIOLOGY REPORT (SQ) ---
EXAM DESCRIPTION: KUB/ABDOMEN (SINGLE VIEW) COMPLETED DATE/TIME: 06/24/2018 10:03 am REASON FOR STUDY: n/v COMPARISON: None. NUMBER OF VIEWS: One view. TECHNIQUE: Supine radiographic image of the abdomen acquired. LIMITATIONS: None. FINDINGS: BOWEL GAS PATTERN: Normal bowel gas pattern. No dilated loops. Prominent stool throughout the colon and rectum. CALCIFICATIONS: No suspicious calcifications. SOFT TISSUES: No gross mass or suggestion of organomegaly. HARDWARE: None in the abdomen. BONES: No acute fracture. No worrisome bone lesions. OTHER: No other significant finding. IMPRESSION: NO RADIOGRAPHIC EVIDENCE FOR ACUTE ABDOMINAL DISEASE. PROMINENT STOOL, PROBABLE CONSTIP ATION. TECHNICAL DOCUMENTATION: JOB ID: [id number] [employer]- All Rights Reserved Reading location - IP/workstation name: [email or web address]
[2018-06-24] MEDS: POLYETHYLENE GLYCOL 3350 POWDER 17 GM/1 PACKET PO SCH (17:36)
[2018-06-24] MEDS: LATANOPROST 0.005% OPH SOLN 2.5 ML OD SCH (21:28)
[2018-06-25 06:44] LABS: ABSOLUTE EOSINOPHILS # (AUTO) 0.1 10^3/uL (0.0-0.6); ABSOLUTE LYMPHOCYTES (AUTO) 1.4 10^3/uL (0.5-4.7); ABSOLUTE MONOCYTES (AUTO) 0.5 10^3/uL (0.1-1.4); ABSOLUTE NEUT (AUTO) 4.6 10^3/uL (1.7-8.2); BASOPHILS % (AUTO) 0.3 % (0-2); EOSINOPHILS % (AUTO) 1.4 % (0-6); HEMATOCRIT 22.6 % (36.0-47.0); LYMPHOCYTES % (AUTO) 21.2 % (13-45); MEAN CORPUSCULAR HEMOGLOBIN 33.2 pg (27.0-33.4); MEAN CORPUSCULAR HGB CONC 35.2 g/dL (32.0-36.0); MEAN CORPUSCULAR VOLUME 94 fl (80-97); MONOCYTES % (AUTO) 7.3 % (3-13); PLATELET COUNT 191 10^3/uL (150-450); RED CELL DISTRIBUTION WIDTH 13.2 % (11.5-14.0); SEGMENTED NEUTROPHILS % (AUTO) 69.8 % (42-78); TOTAL CELLS COUNTED % (AUTO) 100 %; WHITE BLOOD COUNT 6.7 10^3/uL (4.0-10.5)
[2018-06-25 06:53] LABS: ANION GAP 5 (5-19); BLOOD UREA NITROGEN 12 mg/dL (7-20); CALCIUM 8.2 mg/dL (8.4-10.2); CARBON DIOXIDE 28 mmol/L (22-30); CHLORIDE 110 mmol/L (98-107); GLUCOSE 102 mg/dL (75-110); POTASSIUM 3.8 mmol/L (3.6-5.0); SODIUM 142.6 mmol/L (137-145)
--- NOTE | 2018-06-25 08:41 | PDOC PROGRESS REPORT ---
Subjective Progress Note for:: 06/25/18 Subjective:: Patient had another episode of vomiting post feeding. Her repeat KUB suggested moderate constipation She was managed with soap sub enema with satisfactory outcome. PO intake remain a challenge. No reported difficulty with breathing. No fever. Reason For Visit: HYPOGLYCEMIA,AMS,ARF Physical Exam Vital Signs: Temp Pulse Resp BP Pulse Ox 99.0 F 66 16 177/60 H 99 06/25/18 07:40 06/25/18 07:40 06/25/18 07:40 06/25/18 07:40 06/25/18 07:40 Intake & Output 06/24/18 06/25/18 06/26/18 06:59 06:59 06:59 Intake Total 2814 Output Total 900 Balance 1914 Weight 74.5 kg Physical Exam: General appearance: PRESENT: no acute distress Head exam: PRESENT: atraumatic, normocephalic Eye exam: PRESENT: conjunctiva pink. ABSENT: scleral icterus Ear exam: PRESENT: normal external ear exam Mouth exam: PRESENT: moist Respiratory exam: PRESENT: clear to auscultation blake, decreased breath sounds - at lung bases Cardiovascular exam: PRESENT: RRR. ABSENT: diastolic murmur, rubs, systolic murmur Murmur grade: 3 Vascular exam: PRESENT: left eye corneal opacity. ABSENT: pallor GI/Abdominal exam: PRESENT: normal bowel sounds, soft. ABSENT: distended, guarding, mass, organomegaly, rebound, tenderness Extremities exam: ABSENT: pedal edema Musculoskeletal exam: PRESENT: other - contracture deformity right extremities Neurological exam: PRESENT: alert, awake, oriented to person, oriented to time, other - right hemiparesis Psychiatric exam: PRESENT: appropriate affect, normal mood. ABSENT: homicidal ideation, suicidal ideation Skin exam: PRESENT: dry, intact, warm. ABSENT: cyanosis, rash Murmur grade: 3 Results Laboratory Results: 06/25/18 05:40 06/25/18 05:40 06/25/18 06/25/18 05:40 05:40 WBC 6.7 RBC 2.40 L Hgb 8.0 L Hct 22.6 L MCV 94 MCH 33.2 MCHC 35.2 RDW 13.2 Plt Count 191 Seg Neutrophils % 69.8 Lymphocytes % 21.2 Monocytes % 7.3 Eosinophils % 1.4 Basophils % 0.3 Absolute Neutrophils 4.6 Absolute Lymphocytes 1.4 Absolute Monocytes 0.5 Absolute Eosinophils 0.1 Absolute Basophils 0.0 Sodium 142.6 Potassium 3.8 Chloride 110 H Carbon Dioxide 28 Anion Gap 5 BUN 12 Creatinine 0.83 Est GFR ( Amer) > 60 Est GFR (Non-Af Amer) > 60 Glucose 102 Calcium 8.2 L 06/21/18 08:37 Garcia Catheter Urine Culture - Final Escherichia Coli Impressions: Chest X-Ray 06/20/18 00:00 IMPRESSION: NO ACUTE RADIOGRAPHIC FINDING IN THE CHEST. KUB X-Ray 06/24/18 00:00 IMPRESSION: NO RADIOGRAPHIC EVIDENCE FOR ACUTE ABDOMINAL DISEASE. PROMINENT STOOL, PROBABLE CONSTIPATION. Assessment & Plan - Diagnosis (1) Toxic metabolic encephalopathy Is this a current diagnosis for this admission?: Yes (2) E. coli UTI (urinary tract infection) Is this a current diagnosis for this admission?: Yes Plan: Continue IV Rocephin therapy. 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 Is this a current diagnosis for this admission?: Yes (7) Hemiparesis affecting right side as late effect of cerebrovascular accident Is this a current diagnosis for this admission?: Yes (8) Vomiting Qualifiers: Vomiting type: unspecified Nausea presence: without nausea Is this a current diagnosis for this admission?: Yes - Time Time Spent with patient: 25-34 minutes Medications reviewed and adjusted accordingly: Yes Anticipated discharge: Home with Homehealth, SNF, Hospice Within: Other - Inpatient Certification Based on my medical assessment, after consideration of the patient's comorbidities, presenting symptoms, or acuity I expect that the services needed warrant INPATIENT care.: Yes I certify that my determination is in accordance with my understanding of Medicare's requirements for reasonable and necessary INPATIENT services [42 CFR 412.3e].: Yes Medical Necessity: Need Close Monitoring Due to Risk of Patient Decompensation, Need For IV Fluids, Need for IV Antibiotics, Risk of Complication if Not Cared For in Hospital Post Hospital Care: D/C School Adjustment Counselor Documentation - Plan Summary Plan Summary: Continue IV Rocephin coverage for E.Coli UTI management. Decrease IV fluid rate to 50mL/hour. Discuss with son/family regarding disposition plan with consideration of PEG tube placement, hospice placement or SNF placement. Continue all other current medication management and feeding assistance.
[2018-06-25] MEDS: CEFTRIAXONE SODIUM 1,000 MG in DEXTROSE 5%-WATER 50 ML IV SCH (11:00)
[2018-06-25] MEDS: POLYETHYLENE GLYCOL 3350 POWDER 17 GM/1 PACKET PO SCH ×2 (11:01→19:24)
[2018-06-25] MEDS: DEXTROSE 5%-NORMAL SALINE 500 ML IV PRN ×2 (14:39→22:57)
[2018-06-25] MEDS ORDERED: VALSARTAN 160 MG TABLET PO SCH (15:00)
[2018-06-25] MEDS: LATANOPROST 0.005% OPH SOLN 2.5 ML OD SCH (22:56)
[2018-06-26] MEDS ORDERED: VALSARTAN 160 MG TABLET PO ONE (04:15)
[2018-06-26 06:11] LABS: BLOOD UREA NITROGEN 12 mg/dL (7-20); CALCIUM 8.3 mg/dL (8.4-10.2); CARBON DIOXIDE 29 mmol/L (22-30); CHLORIDE 106 mmol/L (98-107); GLUCOSE 107 mg/dL (75-110); POTASSIUM 3.6 mmol/L (3.6-5.0); SODIUM 139.4 mmol/L (137-145)
[2018-06-26 06:12] LABS: ANION GAP 4 (5-19)
[2018-06-26] MEDS ORDERED: DEXTROSE 5%-NORMAL SALINE 1,000 ML IV PRN (07:41)
--- NOTE | 2018-06-26 07:41 | PDOC PROGRESS REPORT ---
Subjective Progress Note for:: 06/26/18 Subjective:: Family did not respond to efforts at disposition plan yesterday. Her blood pressure has been a concern since last clinical evaluation. She denied any chest pain or difficulty with her breathing. [place] fever or chills. No recurrent vomiting. No nausea or abdominal pain. PO intake about 50-75 % of served meals. Reason For Visit: HYPOGLYCEMIA,AMS,ARF Physical Exam Vital Signs: Temp Pulse Resp BP Pulse Ox 99.4 F 73 20 187/73 H 98 06/26/18 03:48 06/26/18 03:48 06/25/18 19:46 06/26/18 03:48 06/26/18 03:48 Intake & Output 06/25/18 06/26/18 06/27/18 06:59 06:59 06:59 Intake Total 2814 1895 Output Total 900 1000 1200 Balance 1914 895 -1200 Weight 74.5 kg Physical Exam: General appearance: PRESENT: no acute distress Head exam: PRESENT: atraumatic, normocephalic Eye exam: PRESENT: left eye corneal opacity, conjunctiva pink. ABSENT: scleral icterus Ear exam: PRESENT: normal external ear exam Mouth exam: PRESENT: moist Respiratory exam: PRESENT: clear to auscultation blake, decreased breath sounds - at lung bases Cardiovascular exam: PRESENT: RRR. ABSENT: diastolic murmur, rubs, systolic murmur Murmur grade: 3 Vascular exam: ABSENT: pallor GI/Abdominal exam: PRESENT: normal bowel sounds, soft. ABSENT: distended, guarding, mass, organomegaly, rebound, tenderness Extremities exam: ABSENT: pedal edema Musculoskeletal exam: PRESENT: other - contracture deformity right extremities Neurological exam: PRESENT: alert, awake, oriented to person, oriented to time, other - right hemiparesis Psychiatric exam: PRESENT: appropriate affect, normal mood. ABSENT: homicidal ideation, suicidal ideation Skin exam: PRESENT: dry, intact, warm. ABSENT: cyanosis, rash Murmur grade: 3 Results Laboratory Results: 06/25/18 05:40 06/26/18 05:30 06/26/18 05:30 Sodium 139.4 Potassium 3.6 Chloride 106 Carbon Dioxide 29 Anion Gap 4 L BUN 12 Creatinine 0.78 Est GFR ( Amer) > 60 Est GFR (Non-Af Amer) > 60 Glucose 107 Calcium 8.3 L Impressions: Chest X-Ray 06/20/18 00:00 IMPRESSION: NO ACUTE RADIOGRAPHIC FINDING IN THE CHEST. KUB X-Ray 06/24/18 00:00 IMPRESSION: NO RADIOGRAPHIC EVIDENCE FOR ACUTE ABDOMINAL DISEASE. PROMINENT STOOL, PROBABLE CONSTIPATION. Assessment & Plan - Diagnosis (1) Toxic metabolic encephalopathy Is this a current diagnosis for this admission?: Yes (2) E. coli UTI (urinary tract infection) Is this a current diagnosis for this admission?: Yes Plan: Continue IV Rocephin coverage. 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 Start on Amlodipine 5 mg po daily, change IV fluid support to KVO. 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 Is this a current diagnosis for this admission?: Yes (7) Hemiparesis affecting right side as late effect of cerebrovascular accident Is this a current diagnosis for this admission?: Yes (8) Vomiting Qualifiers: Vomiting type: unspecified Nausea presence: without nausea Is this a current diagnosis for this admission?: Yes - Time Time Spent with patient: 25-34 minutes Medications reviewed and adjusted accordingly: Yes Anticipated discharge: Home with Homehealth, SNF Within: Other - Inpatient Certification Based on my medical assessment, after consideration of the patient's comorbidities, presenting symptoms, or acuity I expect that the services needed warrant INPATIENT care.: Yes I certify that my determination is in accordance with my understanding of Medicare's requirements for reasonable and necessary INPATIENT services [42 CFR 412.3e].: Yes Medical Necessity: Need Close Monitoring Due to Risk of Patient Decompensation, Need For IV Fluids, Need for IV Antibiotics, Risk of Complication if Not Cared For in Hospital Post Hospital Care: D/C Dental Hygiene Teacher Documentation - Plan Summary Plan Summary: See attending physician orders.
[2018-06-26] MEDS: AMLODIPINE BESYLATE 5 MG TABLET PO SCH (10:08)
[2018-06-26] MEDS: POLYETHYLENE GLYCOL 3350 POWDER 17 GM/1 PACKET PO SCH ×2 (10:08→17:50)
[2018-06-26] MEDS: CEFTRIAXONE SODIUM 1,000 MG in DEXTROSE 5%-WATER 50 ML IV SCH (10:08)
[2018-06-26] MEDS: LATANOPROST 0.005% OPH SOLN 2.5 ML OD SCH (22:45)
[2018-06-26] MEDS: VALSARTAN 160 MG TABLET PO SCH (22:45)
[2018-06-27 10:10] LABS: ANION GAP 8 (5-19); BLOOD UREA NITROGEN 13 mg/dL (7-20); CALCIUM 8.8 mg/dL (8.4-10.2); CARBON DIOXIDE 28 mmol/L (22-30); CHLORIDE 105 mmol/L (98-107); GLUCOSE 140 mg/dL (75-110); POTASSIUM 3.6 mmol/L (3.6-5.0); SODIUM 141.1 mmol/L (137-145)
[2018-06-27] MEDS: VALSARTAN 160 MG TABLET PO SCH ×2 (11:02→22:23)
[2018-06-27] MEDS: POLYETHYLENE GLYCOL 3350 POWDER 17 GM/1 PACKET PO SCH ×2 (11:02→18:33)
[2018-06-27] MEDS: AMLODIPINE BESYLATE 5 MG TABLET PO SCH (11:02)
[2018-06-27] MEDS: CEFTRIAXONE SODIUM 1,000 MG in DEXTROSE 5%-WATER 50 ML IV SCH (11:02)
--- NOTE | 2018-06-27 20:39 | PDOC PROGRESS REPORT ---
Subjective Progress Note for:: 06/27/18 Subjective:: No chest pain or difficulty with her breathing. No fever or chills. No vomiting , nausea or abdominal pain. P.O intake remain a challenge. Son reported that patient is two person assist to transfer from bed and chair as well as off commode at home prior to admission. He is willing to discharge patient to SNF for short term rehabilitation before returning home. Reason For Visit: HYPOGLYCEMIA,AMS,ARF Physical Exam Vital Signs: Temp Pulse Resp BP Pulse Ox 97.8 F 73 16 158/63 H 98 06/27/18 15:33 06/27/18 15:33 06/27/18 15:33 06/27/18 15:33 06/27/18 15:33 Intake & Output 06/26/18 06/27/18 06/28/18 06:59 06:59 06:59 Intake Total 1895 1221 1622 Output Total 1000 3675 1600 Balance 895 -2454 22 Weight 75.2 kg Physical Exam: General appearance: PRESENT: no acute distress Head exam: PRESENT: atraumatic, normocephalic Eye exam: PRESENT: left eye corneal opacity, conjunctiva pink. ABSENT: scleral icterus Ear exam: PRESENT: normal external ear exam Mouth exam: PRESENT: moist Respiratory exam: PRESENT: clear to auscultation blake, decreased breath sounds - at lung bases Cardiovascular exam: PRESENT: RRR. ABSENT: diastolic murmur, rubs, systolic murmur Murmur grade: 3 Vascular exam: ABSENT: pallor GI/Abdominal exam: PRESENT: normal bowel sounds, soft. ABSENT: distended, guarding, mass, organomegaly, rebound, tenderness Extremities exam: ABSENT: pedal edema Musculoskeletal exam: PRESENT: other - contracture deformity right extremities Neurological exam: PRESENT: alert, awake, oriented to person, oriented to time, other - right hemiparesis Psychiatric exam: PRESENT: appropriate affect, normal mood. ABSENT: homicidal ideation, suicidal ideation Skin exam: PRESENT: dry, intact, warm. ABSENT: cyanosis, rash Murmur grade: 3 Results Laboratory Results: 06/25/18 05:40 06/27/18 09:00 06/27/18 09:00 Sodium 141.1 Potassium 3.6 Chloride 105 Carbon Dioxide 28 Anion Gap 8 BUN 13 Creatinine 0.75 Est GFR ( Amer) > 60 Est GFR (Non-Af Amer) > 60 Glucose 140 H Calcium 8.8 Impressions: Chest X-Ray 06/20/18 00:00 IMPRESSION: NO ACUTE RADIOGRAPHIC FINDING IN THE CHEST. KUB X-Ray 06/24/18 00:00 IMPRESSION: NO RADIOGRAPHIC EVIDENCE FOR ACUTE ABDOMINAL DISEASE. PROMINENT STOOL, PROBABLE CONSTIPATION. Assessment & Plan - Diagnosis (1) Toxic metabolic encephalopathy Is this a current diagnosis for this admission?: Yes (2) E. 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 Is this a current diagnosis for this admission?: Yes (7) Hemiparesis affecting right side as late effect of cerebrovascular accident Is this a current diagnosis for this admission?: Yes (8) Vomiting Qualifiers: Vomiting type: unspecified Nausea presence: without nausea Is this a current diagnosis for this admission?: Yes - Time Time Spent with patient: 25-34 minutes Medications reviewed and adjusted accordingly: Yes Anticipated discharge: SNF Within: within 48 hours - Inpatient Certification Based on my medical assessment, after consideration of the patient's comorbidities, presenting symptoms, or acuity I expect that the services needed warrant INPATIENT care.: Yes I certify that my determination is in accordance with my understanding of Medicare's requirements for reasonable and necessary INPATIENT services [42 CFR 412.3e].: Yes Medical Necessity: Need Close Monitoring Due to Risk of Patient Decompensation, Need For IV Fluids, Need for IV Antibiotics, Risk of Complication if Not Cared For in Hospital Post Hospital Care: D/C or Transfer Summary - Plan Summary Plan Summary: Continue IV Rocephin coverage. Order for hospital bed for use at home upon discharge to aide in her management of position related recurrent postprandial vomiting, CVA with right hemiparesis and transfer difficulty as well as prevention of pressure ulcer. Consult with nurse discharge planner for SNF rehabilitation placement and procurement of the hospital bed. continue all other current medical management.
[2018-06-27] MEDS: LATANOPROST 0.005% OPH SOLN 2.5 ML OD SCH (22:24)
[2018-06-28] MEDS: POLYETHYLENE GLYCOL 3350 POWDER 17 GM/1 PACKET PO SCH ×2 (10:31→17:07)
[2018-06-28] MEDS: VALSARTAN 160 MG TABLET PO SCH ×2 (10:31→22:40)
[2018-06-28] MEDS: AMLODIPINE BESYLATE 5 MG TABLET PO SCH (10:31)
--- NOTE | 2018-06-28 20:35 | PDOC PROGRESS REPORT ---
Subjective Progress Note for:: 06/28/18 Subjective:: No chest pain or difficulty with her breathing. No fever or chills. No vomiting , nausea or abdominal pain. Awaiting response from [facility] regarding bed offer for short term rehabilitation. Reason For Visit: HYPOGLYCEMIA,AMS,ARF Physical Exam Vital Signs: Temp Pulse Resp BP Pulse Ox 99.7 F 71 16 167/70 H 99 06/28/18 20:00 06/28/18 20:00 06/28/18 20:00 06/28/18 20:00 06/28/18 20:00 Intake & Output 06/27/18 06/28/18 06/29/18 06:59 06:59 06:59 Intake Total 1221 1622 591 Output Total 3675 3800 1100 Balance -2454 -2178 -509 Weight 75.2 kg 75.2 kg Physical Exam: General appearance: PRESENT: no acute distress Head exam: PRESENT: atraumatic, normocephalic Eye exam: PRESENT: left eye corneal opacity, conjunctiva pink. ABSENT: scleral icterus Ear exam: PRESENT: normal external ear exam Mouth exam: PRESENT: moist Respiratory exam: PRESENT: clear to auscultation blake, decreased breath sounds - at lung bases Cardiovascular exam: PRESENT: RRR. ABSENT: diastolic murmur, rubs, systolic murmur Murmur grade: 3 Vascular exam: ABSENT: pallor GI/Abdominal exam: PRESENT: normal bowel sounds, soft. ABSENT: distended, guarding, mass, organomegaly, rebound, tenderness Extremities exam: ABSENT: pedal edema Musculoskeletal exam: PRESENT: other - contracture deformity right extremities Neurological exam: PRESENT: alert, awake, oriented to person, oriented to time, other - right hemiparesis Psychiatric exam: PRESENT: appropriate affect, normal mood. ABSENT: homicidal ideation, suicidal ideation Skin exam: PRESENT: dry, intact, warm. ABSENT: cyanosis, rash Murmur grade: 3 Results Laboratory Results: 06/25/18 05:40 06/27/18 09:00 Impressions: Chest X-Ray 06/20/18 00:00 IMPRESSION: NO ACUTE RADIOGRAPHIC FINDING IN THE CHEST. KUB X-Ray 06/24/18 00:00 IMPRESSION: NO RADIOGRAPHIC EVIDENCE FOR ACUTE ABDOMINAL DISEASE. PROMINENT STOOL, PROBABLE CONSTIPATION. Assessment & Plan - Diagnosis (1) Toxic metabolic encephalopathy Is this a current diagnosis for this admission?: Yes (2) E. 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 Is this a current diagnosis for this admission?: Yes (7) Hemiparesis affecting right side as late effect of cerebrovascular accident Is this a current diagnosis for this admission?: Yes (8) Vomiting Qualifiers: Vomiting type: unspecified Nausea presence: without nausea Is this a current diagnosis for this admission?: Yes - Time Time Spent with patient: 25-34 minutes Medications reviewed and adjusted accordingly: Yes Anticipated discharge: SNF Within: Other - Inpatient Certification Based on my medical assessment, after consideration of the patient's comorbidities, presenting symptoms, or acuity I expect that the services needed warrant INPATIENT care.: Yes I certify that my determination is in accordance with my understanding of Medicare's requirements for reasonable and necessary INPATIENT services [42 CFR 412.3e].: Yes Medical Necessity: Need Close Monitoring Due to Risk of Patient Decompensation, Need For IV Fluids, Need for IV Antibiotics, Risk of Complication if Not Cared For in Hospital Post Hospital Care: D/C or Transfer Summary - Plan Summary Plan Summary: Continue current medication management. Day # 7 for IV Rocephin coverage. Possible transfer to SNF tomorrow if bed is made offered.
[2018-06-28] MEDS: LATANOPROST 0.005% OPH SOLN 2.5 ML OD SCH (22:40)
[2018-06-29 05:33] LABS: ABSOLUTE EOSINOPHILS # (AUTO) 0.1 10^3/uL (0.0-0.6); ABSOLUTE LYMPHOCYTES (AUTO) 1.6 10^3/uL (0.5-4.7); ABSOLUTE MONOCYTES (AUTO) 0.4 10^3/uL (0.1-1.4); ABSOLUTE NEUT (AUTO) 4.9 10^3/uL (1.7-8.2); BASOPHILS % (AUTO) 0.3 % (0-2); HEMOGLOBIN 8.7 g/dL (12.0-15.5); LYMPHOCYTES % (AUTO) 22.4 % (13-45); MEAN CORPUSCULAR HEMOGLOBIN 32.6 pg (27.0-33.4); MEAN CORPUSCULAR HGB CONC 34.9 g/dL (32.0-36.0); MEAN CORPUSCULAR VOLUME 94 fl (80-97); MONOCYTES % (AUTO) 5.2 % (3-13); PLATELET COUNT 237 10^3/uL (150-450); RED BLOOD COUNT 2.67 10^6/uL (3.72-5.28); RED CELL DISTRIBUTION WIDTH 13.5 % (11.5-14.0); SEGMENTED NEUTROPHILS % (AUTO) 70.1 % (42-78); TOTAL CELLS COUNTED % (AUTO) 100 %; WHITE BLOOD COUNT 6.9 10^3/uL (4.0-10.5)
[2018-06-29 05:46] LABS: ANION GAP 9 (5-19); BLOOD UREA NITROGEN 15 mg/dL (7-20); CALCIUM 8.8 mg/dL (8.4-10.2); CARBON DIOXIDE 27 mmol/L (22-30); CHLORIDE 104 mmol/L (98-107); GLUCOSE 95 mg/dL (75-110); SODIUM 140.4 mmol/L (137-145)
[2018-06-29] MEDS: POLYETHYLENE GLYCOL 3350 POWDER 17 GM/1 PACKET PO SCH ×2 (09:15→17:14)
--- NOTE | 2018-06-29 09:29 | PDOC TRANSFER SUMMARY ---
General - Admit/Disc Date/PCP Admission Date/Primary Care Provider: 06/14/18 23:38 MOOK WHITE Discharge Date: 06/29/18 - Discharge Diagnosis (1) Toxic metabolic encephalopathy Is this a current diagnosis for this admission?: Yes (2) E. 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 Is this a current diagnosis for this admission?: Yes (7) Hemiparesis affecting right side as late effect of cerebrovascular accident Is this a current diagnosis for this admission?: Yes (8) Vomiting Is this a current diagnosis for this admission?: Yes - Additional Information Resuscitation Status: Do Not Resuscitate Discharge Diet: Cardiac Discharge Activity: Activity As Tolerated, Slowly Increase Activity, Supervised Activity Home Medications: Latanoprost [Xalatan] 2.5 ml OD QHS 06/15/18 Olmesartan/Amlodipin/Hcthiazid [Iabbuvk-Xockrr-Ywia 40-5-25 mg] 1 each PO DAILY 06/15/18 Pramipexole Di-HCl [Pramipexole ER] 1.5 mg PO Q8 06/15/18 Polyethylene Glycol 3350 [Miralax Powder 17 gm/Packet] 17 gm PO DAILY powd.pack 06/29/18 History of Present Illness Admission Date/PCP: 06/14/18 23:38 MOOK WHITE History of Present Illness: DIXIE MANJARREZ is a 77 year old female patient known to my practice who was brought to the ED by family due to compliant of worsening generalized weakness and not been her usual self. Patient had episode of UTI about one month ago. Son reported that thereafter she has not been her usual self with decrease apatite and po intake. She has become progressively weaker thereafter. She does not swallow her food but chew and retain in her mouth. There was no reported or expressed pain or difficulty with swallowing. No reported vomiting, constipation or diarrhea. No fever or chills. Her usual self have been minimal verbal interaction but this have been non existence in the last couple of days. Her ED initial evaluation was significant for severe dehydration. Her morbidities include dementia, hypertension, prior CVA with late effects, and visual impairment Hospital Course Hospital Course: Patient responded to IV fluid resuscitation and empiric antibiotic coverage. Her urine culture eventually grew E. coli sensitive to empiric antibiotic IV Rocephin. She had adequate coverage for seven days. Her oral intake gradually improved after period of NPO status due to concern for aspiration. She was evaluated by speech pathologist and eventually cleared for oral feeding with assistance. Her feeding was punctuated with episodes of post feeding vomiting related to her position in bed. It was decided that she will benefit from hospital bed for dual purpose of her transfer inability without assistance as well as reduce incident of vomiting. She may benefit from short term rehabilitation to improve her functional capacity and participation. Patient and son are agreeable to SNF placement for short term rehabilitation. Patient maintain a DNR status during this hospitalization. Physical Exam Vital Signs: Temp Pulse Resp BP Pulse Ox 98.5 F 68 17 172/66 H 97 06/29/18 07:46 06/29/18 07:46 06/29/18 07:46 06/29/18 07:46 06/29/18 07:46 Intake & Output 06/28/18 06/29/18 06/30/18 06:59 06:59 06:59 Intake Total 1622 1066 Output Total 3800 2100 Balance -2178 -1034 Weight 75.2 kg 76.1 kg General appearance: PRESENT: no acute distress Head exam: PRESENT: atraumatic, normocephalic Eye exam: PRESENT: left eye corneal opacity, conjunctiva pink. ABSENT: scleral icterus Ear exam: PRESENT: normal external ear exam Mouth exam: PRESENT: moist Respiratory exam: PRESENT: clear to auscultation blake, decreased breath sounds - at lung bases Cardiovascular exam: PRESENT: RRR. ABSENT: diastolic murmur, rubs, systolic murmur Murmur grade: 3 Vascular exam: ABSENT: pallor GI/Abdominal exam: PRESENT: normal bowel sounds, soft. ABSENT: distended, guarding, mass, organomegaly, rebound, tenderness Extremities exam: ABSENT: pedal edema Musculoskeletal exam: PRESENT: other - contracture deformity right extremities Neurological exam: PRESENT: alert, awake, oriented to person, oriented to time, other - right hemiparesis Psychiatric exam: PRESENT: appropriate affect, normal mood. ABSENT: homicidal ideation, suicidal ideation Skin exam: PRESENT: dry, intact, warm. ABSENT: cyanosis, rash Murmur grade: 3 Results Laboratory Results: 06/29/18 05:20 06/29/18 05:20 06/29/18 06/29/18 05:20 05:20 WBC 6.9 RBC 2.67 L Hgb 8.7 L Hct 25.0 L MCV 94 MCH 32.6 MCHC 34.9 RDW 13.5 Plt Count 237 Seg Neutrophils % 70.1 Lymphocytes % 22.4 Monocytes % 5.2 Eosinophils % 2.0 Basophils % 0.3 Absolute Neutrophils 4.9 Absolute Lymphocytes 1.6 Absolute Monocytes 0.4 Absolute Eosinophils 0.1 Absolute Basophils 0.0 Sodium 140.4 Potassium 4.0 Chloride 104 Carbon Dioxide 27 Anion Gap 9 BUN 15 Creatinine 0.61 Est GFR ( Amer) > 60 Est GFR (Non-Af Amer) > 60 Glucose 95 Calcium 8.8 Impressions: Chest X-Ray 06/20/18 00:00 IMPRESSION: NO ACUTE RADIOGRAPHIC FINDING IN THE CHEST. KUB X-Ray 06/24/18 00:00 IMPRESSION: NO RADIOGRAPHIC EVIDENCE FOR ACUTE ABDOMINAL DISEASE. PROMINENT STOOL, PROBABLE CONSTIPATION. Transfer Plan - Disposition Transfer Plan: Transfer to SNF for short term rehabilitation. Follow up in the office upon discharge from SNF. Family and facility staff should call office for appointment before SNF discharge. Qualifiers - * PATIENT BEING DISCHARGED WITH ANY OF THE FOLLOWING DIAGNOSIS: No Plan Discharge Plan: Transfer to SNF for short term rehabilitation. Follow up in the office upon discharge from SNF. Family and facility staff should call office for appointment before SNF discharge.
[2018-06-29] MEDS: VALSARTAN 160 MG TABLET PO SCH (09:36)
[2018-06-29] MEDS ORDERED: AMLODIPINE BESYLATE 10 MG TABLET PO SCH (10:00)
[2018-06-29 11:56] VITALS: BP 153/56
== END 2018-06-29 17:50 | DRG 682 ==
LOC: ER 20:39 → EH 23:38 → 4S 06-15 01:47
PROVIDERS: ADMIT Internal Medicine Geriatric Medicine; ATTEND Internal Medicine Geriatric Medicine
PROC: 05HN33Z Insertion of Infusion Device into Left Internal Jugular Vein, Percutaneous Approach (ICD-10-PCS; principal; 2018-06-15)
PROC: B544ZZA Ultrasonography of Left Jugular Veins, Guidance (ICD-10-PCS; 2018-06-15)
PROC: 3E02340 Introduction of Influenza Vaccine into Muscle, Percutaneous Approach (ICD-10-PCS; 2018-06-29)
DX: N17.1 Acute kidney failure with acute cortical necrosis (principal); G92 Toxic encephalopathy; N39.0 Urinary tract infection, site not specified; I69.351 Hemiplegia and hemiparesis following cerebral infarction affecting right dominant side; E16.2 Hypoglycemia, unspecified; Z66 Do not resuscitate; B96.20 Unspecified Escherichia coli [E. coli] as the cause of diseases classified elsewhere; E86.0 Dehydration; I10 Essential (primary) hypertension; E78.00 Pure hypercholesterolemia, unspecified; F03.90 Unspecified dementia, unspecified severity, without behavioral disturbance, psychotic disturbance, mood disturbance, and anxiety; I69.320 Aphasia following cerebral infarction; Z23 Encounter for immunization; Z90.710 Acquired absence of both cervix and uterus; Z79.899 Other long term (current) drug therapy; Z88.8 Allergy status to other drugs, medicaments and biological substances
CPT/HCPCS: 36415; 51701; 71045; 74018; 80048; 80053; 81001; 82962; 83605; 83735; 84484; 85025; 87040; 87086; 87088; 87186; 90471; 90686; 93005; 93010; 96374; 99285; C1751; G0008; G8996-GN; G8997-GN; G8998-GN; J0696; J1610; J1642; J2405; J3480; J3490; J7030; J7042